=== PATIENT | male | born 1985 | race Caucasian/White ===

== ENCOUNTER → 2024-04-21 14:32 | Outpatient (REF) | payer OTHER, SELFPAY | LOC: HWRAD 14:32 | PROVIDERS: ATTENDING PHYSICIAN Physician Assistant Surgical; FAMILY PHYSICIAN Family Medicine | DX: M17.0 Bilateral primary osteoarthritis of knee (principal); M25.462 Effusion, left knee; M25.461 Effusion, right knee | CPT/HCPCS: 73562 ==

== ENCOUNTER 2024-06-25 09:24 | Emergency (ER) | payer OTHER, SELFPAY ==
[2024-06-25 09:35] VITALS: BP 155/90
--- NOTE | 2024-06-25 10:02 | ED.GENMED ---
History of Present Illness
General
Chief Complaint: Flank Pain
Source: patient
Exam Limitations: none
Time Seen by Provider: 06/25/24 09:56
Nursing documentation reviewed up to this point in time: agreed with
History of Present Illness
History of Present Illness:
38-year-old male with history of HLD, anxiety presents for R flank pain. Patient states right flank pain started 2 days ago and radiated into his right groin. He made an appointment to see his PCP for yesterday but before that visit at 12 PM he
voided and the pain dissipated. His PCP Dr. Morales assume that he passed the stone. At 3:30 AM today pain started up again and worsened to 9/10 on arrival here in the ED but since then pain has improved to 3/10. He denies N/V/D/C. He denies
fever or chills. He denies abdominal pain.
Past History
Past History
ED Past Medical History: Hypercholesterolemia
ED Past Surgical History: None
Social History
Tobacco: Vaping
Alcohol: None
Personal: Single
Living: with family
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
Review of Systems
Review of Systems
Allergies reviewed?: Yes
All Other Systems: ROS reviewed and negative except as documented in HPI and ROS
Constitutional: Denies fever or chills
Cardiac: Denies chest pain
ABD/GI: Denies abdominal pain, nausea, vomiting, diarrhea or constipated
: Reports flank pain (Right); Denies dysuria, frequency, difficulty voiding or urgency
Musculoskeletal: Denies neck pain or back pain
Skin: Reports no symptoms
Neurological: Reports no symptoms
Phy Exam
Physical Exam
Physical Exam:
GENERAL: No acute distress. A&Ox3.
CONSTITUTIONAL: Afebrile.
EYES: clear, conjunctivae normal
ENMT: moist mucus membranes
RESPIRATORY: Regular respirations, nonlabored, lungs clear.
CARDIOVASCULAR: Regular rate and rhythm, no murmurs, no rubs.
GI: Morbidly obese, soft, nontender, normal BS, no flank tenderness to percussion.
MUSCULOSKELETAL: Moves with ease. Well perfused.
SKIN: Warm, dry, pink
PSYCH: Normal mood and affect. Well kept, interactive and appropriate
NEUROLOGIC: Awake, alert and oriented. No focal neurological deficits
Course
Orders/Labs/Results
Orders:
Orders
06/25/24 10:01
CT Abd/pel Without Iv Or Oral Urgent
Comment:
Reason For Exam: R flank pain
06/25/24 10:07
Ketorolac [Toradol] 15 mg IV NOW STA
Ondansetron Injectable [Zofran] 4 mg IV NOW STA
06/25/24 10:08
0.9% Sodium Chloride 1000 ml [Nss] 1,000 ml IV BOLUS
06/25/24 10:20
Complete Blood Count/With Diff Urgent
Comprehensive Metabolic Panel Urgent
Urinalysis Reflex To Culture Urgent
Date Specimen was Collected: 06/25/24
Time Specimen was Collected: 10:01
Urine Microscopic Reflex Cult Urgent
Abnormal Lab Results
06/25/24
10:20
WBC 11.1 H 10^3/uL
(4.8-10.8)
RBC 4.65 L 10^6/uL
(4.70-6.10)
Hct 38.8 L %
(39.0-52.0)
Absolute Neuts (auto) 8.3 H 10^3/uL
(1.4-6.5)
Absolute Monos (auto) 0.8 H 10^3/uL
(0.1-0.6)
Lymphocytes % 15.9 L %
(20.5-51.1)
Glucose 137 H mg/dl
(70-99)
ALT 62 H U/L
(0-50)
Ur Occult Blood Reflex 4+ A
(Negative)
Urine Albumin (Reflex) 1+ A
(Neg - Trace)
06/25/24 10:20
06/25/24 10:20
Vital Signs
Initial and Last Documented VS:
Initial Vital Signs
Temp Pulse Resp BP Pulse Ox
97.8 F 94 18 155/90 97
06/25/24 09:35 06/25/24 09:35 06/25/24 09:35 06/25/24 09:35 06/25/24 09:35
Last Documented Vital Signs
Temp Pulse Resp BP Pulse Ox
97.8 F 82 18 109/80 96
06/25/24 13:43 06/25/24 13:43 06/25/24 13:43 06/25/24 13:43 06/25/24 13:43
MDM/Problems Addressed
Differential Diagnosis Includes:
Kidney stone, ureteral stone, UTI
MDM/Problems Addressed:
38-year-old male with history of HLD, anxiety presents for R flank pain. Patient states right flank pain started 2 days ago and radiated into his right groin. He made an appointment to see his PCP for yesterday but before that visit at 12 PM he
voided and the pain dissipated. His PCP Dr. Morales assume that he passed the stone. At 3:30 AM today pain started up again and worsened to 9/10 on arrival here in the ED but since then pain has improved to 3/10. He denies N/V/D/C. He denies
fever or chills. He denies abdominal pain.
11:00 AM:
CBC unremarkable
CMP normal.
UA: 4+ occult blood otherwise unremarkable
CT abdomen pelvis plain radiology for read:IMPRESSION:
1. Mild right hydronephrosis and hydroureter secondary to a 4.6 mm calculus within the distal right ureter.
2. Hepatic steatosis.
3. Cholelithiasis.
4. Additional findings above.
12:15 PM:
Patient is pain-free, stable for discharge
Rx for a few Vicodin and Flomax sent to his pharmacy, referred to urology for follow-up
*Critical Care Note
Total Time (30-74mins, 75-104mins- exclusive of procedures): Not Applicable
ED Attending Note
-
Portions of this chart may have been created with voice recognition software.� Occasional wrong word or��sound alike� substitutions may have occurred due to the inherent limitations of voice recognition software.
Discharge Plan
Departure
Patient Disposition: Home (Routine Discharge)
Date of Disposition: 06/25/24
Time of Disposition: 12:07
Patient with high blood pressure during this ER visit?: No
Condition: Good
Discharge Problem:
Calculus of distal right ureter
Instructions: Kidney Stones (DC), How to Strain Your Urine, Narcotic Pain Medication
Prescriptions:
New
tamsulosin [Flomax] 0.4 mg capsule
0.4 mg PO DAILY Qty: 5 0RF
hydrocodone-acetaminophen 5-300 mg tablet
1 tab PO Q6H PRN (Reason: Pain) Qty: 6 0RF
Referrals:
Lee Pathak MD [Active] - Call in 1-3 days for appt
Pelon Morales, [Family Provider] -
Activity Restrictions/Additional Instructions:
As we discussed, you have a stone in the lower ureter, it should pass soon if it hasn't passed already.
Strain your urine and put it in container to take to Urologist.
Call Urologist office today and ask when they want to see your for follow up.
I sent prescriptions to your pharmacy for Flomax and Vicodin
Take Ibuprofen 600 mg every 6 hours as needed for mild to moderate pain and use the Vicodin if needed for worse pain.
Return here immediately for fever, chills, vomiting, worsening pain or feeling sicker in any way
Interventions
Interventions:
*Risk Screen - Suicide Last Done: 06/25/24 09:35
*General Assessment Last Done: 06/25/24 09:35
*Neglect/Abuse Screening Last Done: 06/25/24 09:35
*ED- Fall Risk Assessment Last Done: 06/25/24 11:30
*ED COVID-19 Vaccine History Last Done: 06/25/24 09:35
*Nursing Disposition Last Done: 06/25/24 13:43
EX-Fdsisc-Eertobdswg Assessment Last Done: 06/25/24 10:12
ED-Male Genitourinary Assessment Last Done: 06/25/24 10:12
Discharge Date and Time
Discharge Date/Time: 06/25/24 12:30
Print Language: JAPANESE
[2024-06-25 10:12] VITALS: BMI 60.7
[2024-06-25] MEDS: NSS 1000 IV (10:20)
[2024-06-25] MEDS: ZOFRAN 4 MG IV (10:20)
[2024-06-25 10:36] LABS: Urine Albumin 1+ (Neg - Trace); Urine Bilirubin Negative (Negative); Urine Character Clear (Clear); Urine Color Yellow; Urine Glucose Negative (Negative); Urine Ketone Negative (Negative); Urine Leukocyte Negative (Negative); Urine Nitrite Negative (Negative); Urine Occult Blood 4+ (Negative); Urine Specific Gravity 1.015 (<1.030); Urine Urobilinogen Negative (Neg - 1+)
[2024-06-25 10:38] LABS: % Basophils 0.4 % (0-2); % Eosinophils 1.6 % (0-6); % Immature Granulocytes 0.4 % (0-0.5); % Lymphocytes 15.9 % (20.5-51.1); % Monocytes 7.3 % (1.7-9.3); % Neutrophils 74.4 % (42.2-75.2); Absolute Eosinophils 0.2 10^3/uL (0-0.7); Absolute Lymphocytes 1.8 10^3/uL (1.2-3.4); Absolute Monocytes 0.8 10^3/uL (0.1-0.6); Absolute Neutrophils 8.3 10^3/uL (1.4-6.5); Hematocrit 38.8 % (39.0-52.0); Hemoglobin 13.4 g/dL (13.0-18.0); Mean Corp Hgb Conc. 34.5 g/dL (33.0-37.0); Mean Corpuscular Hgb 28.8 pg (27.0-31.0); Mean Corpuscular Volume 83.4 fL (80.0-94.0); Mean Platelet Volume 8.8 fL (7.4-10.4); Nucleated Red Blood Cells % 0 % (-); Platelet Count 245 10^3/uL (130-400); Red Blood Cell Count 4.65 10^6/uL (4.70-6.10); Red Cell Dist. Width 13.2 % (11.5-14.5); White Blood Cell Count 11.1 10^3/uL (4.8-10.8)
[2024-06-25 10:44] LABS: ALT (SGPT) 62 U/L (0-50); AST (SGOT) 43 U/L (17-59); Albumin 4.1 g/dl (3.5-5.0); Alkaline Phosphatase 114 U/L (38-126); Blood Urea Nitrogen 14 mg/dl (9-20); Calcium 8.8 mg/dl (8.4-10.2); Carbon Dioxide 23 mmol/L (22-30); Chloride 106 mmol/L (98-107); Estimated Creatinine Clearance > 125 ml/min; Glucose 137 mg/dl (70-99); Potassium 4.2 mmol/L (3.5-5.1); Sodium 140 mmol/L (135-145); Total Bilirubin 0.9 mg/dl (0.2-1.3); Total Protein 6.5 g/dl (6.3-8.2); eGFR > 60.00
[2024-06-25 10:45] LABS: Urine Squamous Cell >30 /LPF (Few)
[2024-06-25 10:46] LABS: Urine Hyaline Cast 0-2 /LPF (0-2); Urine Mucus Few; Urine Red Blood Cell 0-2 /HPF (0-2)
--- NOTE | 2024-06-25 13:42 | EDRN ---
Reviewed discharge instructions with patient. Verbalized understanding. Ambulated with steady gait to the [facility]
[2024-06-25 13:43] VITALS: BP 109/80
== END 2024-06-25 12:30 | disposition home or self-care (01) ==
LOC: EMR 09:24
PROVIDERS: Registered Nurse; EMERGENCY PHYSICIAN Emergency Medicine; FAMILY PHYSICIAN Family Medicine
DX: N13.2 Hydronephrosis with renal and ureteral calculous obstruction (principal); F41.9 Anxiety disorder, unspecified; E78.00 Pure hypercholesterolemia, unspecified; F17.290 Nicotine dependence, other tobacco product, uncomplicated
CPT/HCPCS: 99284; 96374; 96361; 74176; 80053; 81003; 81015; 85025

== ENCOUNTER 2024-10-03 02:29 | Inpatient (IN) | payer OTHER, SELFPAY ==
[2024-10-02 21:56] VITALS: BP 108/65
--- NOTE | 2024-10-02 22:04 | ED.GENMED ---
History of Present Illness
<Alana Layton MD, Resident - Last Filed: 10/03/24 01:45>
General
Chief Complaint: Skin Problem
Source: patient
Time Seen by Provider: 10/02/24 22:03
History of Present Illness
History of Present Illness:
38-year-old male with a past medical history of hyperlipidemia and anxiety comes to the emergency department due to feeling exhausted all week and developing left lower extremity swelling, redness, and pain earlier today. He says the pain also
radiates down from the left side of his groin to his left lower extremity as well. The symptoms developed today when he was at [place] [place] was told by one of his family members that his left leg was more swollen than the other. Throughout the
week he has been feeling exhausted, has had hot and cold flashes and an on and off cough. Does not have any chest pain has had anxiety and headaches more so in the past few hours following searching his symptoms online. He took some ibuprofen
earlier today, but he still has had hot and cold flashes and has been sweating profusely. He states that he had a cortisone shot for his left knee on Friday, he states that he never has any issues following injections. He does not have any chest
pain, but has some mild shortness of breath. He states that he had an insect bite last week on his left arm, but not sure if it was a tick or spider bite.
Past History
<Alana Layton MD, Resident - Last Filed: 10/03/24 01:45>
Past History
ED Past Medical History: Hypercholesterolemia, Psychiatric (Anxiety) and Other (Insomnia)
ED Past Surgical History: None
Social History
Tobacco: Vaping
Alcohol: Occasional (Once a month)
Drug: None
Personal: Single
Living: with family
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
Review of Systems
<Alana Layton MD, Resident - Last Filed: 10/03/24 01:45>
Review of Systems
Allergies reviewed?: Yes
Constitutional: Reports fatigue, night sweats and chills
EENT: Reports no symptoms
Respiratory: Reports cough
Cardiac: Reports no symptoms
ABD/GI: Reports nausea; Denies abdominal pain or vomiting
: Reports no symptoms
Skin: Reports other (Left lower extremity rash)
Neurological: Reports headache; Denies weakness or numbness
Endocrine: Reports no symptoms
Hematologic/Lymphatic: Reports no symptoms
Psychiatric: Reports no symptoms
Phy Exam
<Alana Layton MD, Resident - Last Filed: 10/03/24 01:45>
General Physical Exam
General Presentation: moderate distress
General Skin: warm and dry
General Habitus: obese
General Mental: anxious
General Hydration: appears well hydrated
Cardiovascular Exam
Cardiovascular Exam: no murmur and tachycardia
Pulmonary Exam
Pulmonary Exam: no respiratory distress, no rales, no crackles, no rhonchi, no wheezing and no cough
Gastrointestinal Exam
Gastrointestinal Exam: normal bowel sounds, non tender, soft and non distended
Musculoskeletal Exam
Musculoskeletal Exam: edema (Left lower extremity edema)
Skin Exam
Skin Exam: erythema (Left lower extremity large area of erythema left parson)
Scores
<Alana Layton MD, Resident - Last Filed: 10/03/24 01:45>
PE Wells Score
Symptoms of DVT: Yes
No alternative diagnosis better explains the illness: No
Tachycardia with pulse > 100: Yes
Immobilization (>=3 days) or surgery within previous 4 weeks: No
Prior history of DVT or pulmonary embolism: No
Presence of hemoptysis: No
Presence of malignancy: No
Pulmonary Embolism Risk Score: 1.5
Probability of PE: Pt is low risk
<Thao Ruiz, DO - Last Filed: 10/03/24 01:40>
PE Wells Score
Pulmonary Embolism Risk Score: 1.5
Probability of PE: Pt is low risk
Sepsis
<Alana Layton MD, Resident - Last Filed: 10/03/24 01:45>
Sepsis Screening
Sepsis Assessment: Sepsis
Sepsis Screen
Sepsis Screen: Sepsis
Date: 10/03/24
Time: 01:44
<Thao Ruiz, DO - Last Filed: 10/03/24 01:40>
Sepsis Screen
Sepsis Screen: Sepsis
Date: 10/03/24
Time: 01:39
Course
<Alana Layton MD, Resident - Last Filed: 10/03/24 01:45>
Orders/Labs/Results
Orders:
Orders
10/02/24 22:24
Lactic Acid Urgent
0.9% Sodium Chloride 500 ml [Nss] 500 ml IV BOLUS
Legs, left US [US Periph Venous LOWER Ext LT] Urgent
Comment:
Reason For Exam: Left lower extremity pain
10/02/24 22:25
Complete Blood Count/With Diff Urgent
Comprehensive Metabolic Panel Urgent
10/02/24 22:28
IV Insert/Care/Rem.- Treatment PRN
10/02/24 22:30
Blood Culture Q30M
CONOR Source: Blood/Venous
Specimen Description:
10/02/24 22:34
Lyme Progressive Urgent
10/02/24 22:49
Lorazepam [Ativan] 1 mg PO NOW STA
10/02/24 23:00
Blood Culture Q30M
CONOR Source: Blood/Venous
Specimen Description:
10/02/24 23:42
COVID-19 Antigen Urgent
Source: Nasal Swab
Influenza A+B Rapid Molecular Urgent
CONOR Source: Nasal Swab
Specimen Description:
10/03/24 00:00
CR Chest - 2 Views Urgent
Reason For Exam: Cough
10/03/24 00:12
Manual Differential Urgent
10/03/24 01:34
Vancomycin [Vancocin] 2,000 mg 0.9% Sodium Chloride 500 ml [Nss] 500 ml IV NOW
10/03/24 01:39
Ketorolac [Toradol] 30 mg IV NOW STA
Abnormal Lab Results
10/03/24 10/03/24
00:11 00:12
WBC 35.0 H 10^3/uL
(4.8-10.8)
RBC 4.66 L 10^6/uL
(4.70-6.10)
Abs Neuts (Manual) 31.5 H 10^3/uL
(1.4-6.5)
Segmented Neutrophils 77 H %
(42-75)
Band Neutrophils 13 H %
(0-3)
Lymphocytes (Manual) 7 L %
(20-51)
Sodium 134 L mmol/L
(135-145)
BUN 26 H mg/dl
(9-20)
Creatinine 1.4 H mg/dL
(0.7-1.3)
Glucose 215 H mg/dl
(70-99)
Total Bilirubin 1.6 H mg/dl
(0.2-1.3)
ALT 83 H U/L
(0-50)
10/03/24 00:12
10/03/24 00:11
Vital Signs
Initial and Last Documented VS:
Initial Vital Signs
Temp Pulse Resp BP Pulse Ox
99.7 F 122 22 108/65 96
10/02/24 21:56 10/02/24 21:56 10/02/24 21:56 10/02/24 21:56 10/02/24 21:56
Last Documented Vital Signs
Temp Pulse Resp BP Pulse Ox
99.7 F 122 21 108/65 99
10/02/24 21:56 10/03/24 00:00 10/03/24 00:00 10/02/24 21:56 10/02/24 23:15
<Thao Ruiz DO - Last Filed: 10/03/24 01:40>
Orders/Labs/Results
Orders:
Orders
10/02/24 22:24
Lactic Acid Urgent
0.9% Sodium Chloride 500 ml [Nss] 500 ml IV BOLUS
Legs, left US [US Periph Venous LOWER Ext LT] Urgent
Comment:
Reason For Exam: Left lower extremity pain
10/02/24 22:25
Complete Blood Count/With Diff Urgent
Comprehensive Metabolic Panel Urgent
10/02/24 22:28
IV Insert/Care/Rem.- Treatment PRN
10/02/24 22:30
Blood Culture Q30M
CONOR Source: Blood/Venous
Specimen Description:
10/02/24 22:34
Lyme Progressive Urgent
10/02/24 22:49
Lorazepam [Ativan] 1 mg PO NOW STA
10/02/24 23:00
Blood Culture Q30M
CONOR Source: Blood/Venous
Specimen Description:
10/02/24 23:42
COVID-19 Antigen Urgent
Source: Nasal Swab
Influenza A+B Rapid Molecular Urgent
CONOR Source: Nasal Swab
Specimen Description:
10/03/24 00:00
CR Chest - 2 Views Urgent
Reason For Exam: Cough
10/03/24 00:12
Manual Differential Urgent
10/03/24 01:34
Vancomycin [Vancocin] 2,000 mg 0.9% Sodium Chloride 500 ml [Nss] 500 ml IV NOW
10/03/24 01:39
Ketorolac [Toradol] 30 mg IV NOW STA
Abnormal Lab Results
10/03/24 10/03/24
00:11 00:12
WBC 35.0 H 10^3/uL
(4.8-10.8)
RBC 4.66 L 10^6/uL
(4.70-6.10)
Abs Neuts (Manual) 31.5 H 10^3/uL
(1.4-6.5)
Segmented Neutrophils 77 H %
(42-75)
Band Neutrophils 13 H %
(0-3)
Lymphocytes (Manual) 7 L %
(20-51)
Sodium 134 L mmol/L
(135-145)
BUN 26 H mg/dl
(9-20)
Creatinine 1.4 H mg/dL
(0.7-1.3)
Glucose 215 H mg/dl
(70-99)
Total Bilirubin 1.6 H mg/dl
(0.2-1.3)
ALT 83 H U/L
(0-50)
10/03/24 00:12
10/03/24 00:11
Vital Signs
Initial and Last Documented VS:
Initial Vital Signs
Temp Pulse Resp BP Pulse Ox
99.7 F 122 22 108/65 96
10/02/24 21:56 10/02/24 21:56 10/02/24 21:56 10/02/24 21:56 10/02/24 21:56
Last Documented Vital Signs
Temp Pulse Resp BP Pulse Ox
99.7 F 122 21 108/65 99
10/02/24 21:56 10/03/24 00:00 10/03/24 00:00 10/02/24 21:56 10/02/24 23:15
<Alana Layton MD, Resident - Last Filed: 10/03/24 01:45>
MDM/Problems Addressed
Differential Diagnosis Includes:
DVT, Lyme disease, Pneumonia, COVID, Flu, Pulmonary Embolism, Cellulitis
MDM/Problems Addressed:
38-year-old male comes in very anxious and distressed with lower extremity edema, erythema and tenderness. Has had chills and hot flashes with sweating profusely today.
Will get CBC, CMP
Due to possible sepsis as febrile, tachycardic, and tachypneic, will draw blood cultures, lactic acid and start IV fluids
Check Lyme serology (Had insect bite last week), flu and COVID
Check chest x-ray due to recent cough, may be pneumonia/other acute cardiopulmonary process
Will check left lower extremity ultrasound for possible DVT
Negative COVID and Flu
Marked leukocytosis noted on CBC, possibly related to corticosteroid injection this past week
Lactic acid top end of normal (2.0)
CXR unremarkable on initial read
No evidence of DVT seen on ultrasound
Will start empiric antibiotic therapy with Vancomycin
Will admit to hospital for further management
<Alana Layton MD, Resident - Last Filed: 10/03/24 01:45>
*Pulse Oximetry
SaO2: 96
Oxygen Mode of Delivery: Room air
Patient hypoxic: no
*[employer] Interpretation
Rate: tachycardiac
Interpretation: normal
Heart Rate: 122
Rhythm: sinus
*Critical Care Note
Total Time (30-74mins, 75-104mins- exclusive of procedures): Not Applicable
ED Attending Note
<Alana Layton MD, Resident - Last Filed: 10/03/24 01:45>
-
Portions of this chart may have been created with voice recognition software.� Occasional wrong word or��sound alike� substitutions may have occurred due to the inherent limitations of voice recognition software.
<Thao Ruiz DO - Last Filed: 10/03/24 01:40>
ED Attending Note
Patient seen and examined by attending physician: Yes
I performed the substantive portion of visit, reviewed & personally made and approve the management plan that is documented in note by myself or SHAYY.: Yes
I performed a history and physical exam of patient and discussed management with resident, I reviewed resident's note and agree with documented findings and plan of care.: Yes
ED Attending Note:
38-year-old male with history of hyperlipidemia and anxiety presenting to the emergency department for left lower extremity pain and redness. Reports on Friday, 1 week ago he was bit by a bug in his left forearm. The following day he started to
feel generally unwell. Notes cough, fatigue. Also has been having fevers and chills with nausea, no vomiting. Today noticed some swelling and redness to the left lower extremity distally, as well as pain in the medial thigh. Denies injury or
trauma. Denies any travel. Patient took ibuprofen several hours prior to arrival. Denies any history of blood clots. Denies chest pain or difficulty breathing. Denies numbness or tingling to the extremity. Vital signs are significant for
low-grade temperature and tachycardia.
On exam patient is in no acute distress, nontoxic. Benign cardiac and pulmonary exam. Lungs clear to auscultation. On examination of the upper extremities, small area of bite to the left medial forearm. No signs of bull's-eye or erythema
migrans. On examination of the left lower extremity, erythema and warmth to the left parson with distal pulses and sensation intact to the foot. No significant swelling. Normal exam without any wounds or concern for Meron's. Concern for
cellulitis versus DVT. Lyme disease is also consideration given systemic symptoms. Plan for laboratory analysis, Lyme test, DVT ultrasound
01:30 -delay in disposition secondary to difficult IV access. Right ultrasound-guided IV placed by ut. Labs show elevated white blood cell count of 35,000. Lactic acid is within normal limits, 2.0. However, patient remains tachycardic with
low-grade temperature, meeting criteria for SIRS and possible sepsis. Blood culture sent. DVT ultrasound is negative. Patient does note that he had steroid injection to the left knee on Friday, which could be contributing to leukocytosis,
however ultimately continue to suspect systemic infection. Will start patient on vancomycin and plan for admission
Discharge Plan
Departure
Patient Disposition: Admit
Date of Disposition: 10/03/24
Time of Disposition: 01:41
Admit to: Med/Surg
Presentation/result/management discussed w/ accepting MD/DO: Hospitalist
Patient with high blood pressure during this ER visit?: No
Condition: Fair
Discharge Problem:
Left leg cellulitis
Referrals:
Pelon Morales DO [Family Provider, [facility]]
Interventions
Interventions:
*Risk Screen - Suicide Last Done: 10/02/24 21:56
*General Assessment Last Done: 10/02/24 21:56
*Neglect/Abuse Screening Last Done: 10/02/24 21:56
*ED- Fall Risk Assessment Last Done: 10/02/24 21:56
*ED COVID-19 Vaccine History Last Done: 10/02/24 21:56
ED-Skin Assessment Last Done: 10/02/24 22:31
Discharge Date and Time
Print Language: GREENLAND[place]
[2024-10-02] MEDS: ATIVAN 1 MG PO (23:16)
[2024-10-02] MEDS: NSS 500 IV (23:24)
[2024-10-03] VITALS (8 sets, daily range): BP systolic 90–123; BP diastolic 41–70; BMI 57.6; BMI 56.7
[2024-10-03 00:01] LABS: COVID-19 Antigen Negative (Negative)
[2024-10-03 00:52] LABS: ALT (SGPT) 83 U/L (0-50); AST (SGOT) 28 U/L (17-59); Albumin 3.9 g/dl (3.5-5.0); Alkaline Phosphatase 116 U/L (38-126); Blood Urea Nitrogen 26 mg/dl (9-20); Calcium 8.9 mg/dl (8.4-10.2); Carbon Dioxide 24 mmol/L (22-30); Chloride 102 mmol/L (98-107); Glucose 215 mg/dl (70-99); Potassium 4.9 mmol/L (3.5-5.1); Sodium 134 mmol/L (135-145); Total Protein 6.4 g/dl (6.3-8.2); eGFR > 60.00
[2024-10-03 00:53] LABS: Hematocrit 40.4 % (39.0-52.0); Hemoglobin 13.9 g/dL (13.0-18.0); Mean Corp Hgb Conc. 34.4 g/dL (33.0-37.0); Mean Corpuscular Volume 86.7 fL (80.0-94.0); Platelet Count 379 10^3/uL (130-400); Red Cell Dist. Width 13.0 % (11.5-14.5)
[2024-10-03 01:26] LABS: Absolute Neutrophils -Man Diff 31.5 10^3/uL (1.4-6.5); Normal RBC Morphology Yes; Platelets Checked Yes; Total Cells Counted 100; Toxic Granulation 1+
[2024-10-03] MEDS: TORADOL 30 MG IV (01:44)
--- NOTE | 2024-10-03 02:00 | HPS.HSE ---
Family Physician
-
Family Physician: Pelon Morales
Chief Complaint
-
Left lower extremity swelling redness
History of Present Illness
This is a 38-year-old male with past medical history significant for anxiety, hyperlipidemia, obesity, DAWN not on CPAP who presents to the emergency department with swelling and redness in the left lower extremity.
Patient reported that he has been feeling unwell for about 1 week. He reports intermittent chills but no measured fevers at home. He reports night sweats. He reports that his been fatigued lately. He denies shortness of breath. He denies any
chest pain. He denies any dyspnea exertion. Today he saw that his leg was red and swollen. He also reported some groin tenderness on the left groin. Patient reported that about 2 weeks ago he had gone camping and did suffer a scratch wound to
his left lower extremity. He also reported having an insect bite in his left upper extremity but it was not a tick.
He reported that about 5 months ago he had a kidney stone which was treated medically. He has no recent antibiotic use and no known sick contacts.
In the emergency department he had a temp of 99.7, he was satting 99%. His blood pressure was 108/65 with a pulse rate of 120. He had leukocytosis to 35,000 with 13% bands. Hemoglobin was 13.9 with a platelet count of 379. Electrolytes were
normal. BUN and creatinine were unchanged from prior with a glucose of 215.
Peripheral ultrasound of the left lower extremity was negative for DVT. His chest x-ray was clear
Medical History
Past Medical History
Past Medical History: Reports Hypercholesterolemia, Psychiatric (Anxiety) and Other (DAWN not on CPAP, morbid obesity)
Past Surgical History: Reports Other (Nasal septoplasty)
Social History
Tobacco: Vaping
Alcohol: Occasional
Drug: None
Personal:
Living: With Family
Employment: Employed
Family History
Family History: Not pertinent
Allergies / Home Medications
Allergies reflects when Allergies were last updated in [facility].
Home Medications with original date entered in [facility]
Allergy/Medication List:
Allergies
Allergy/AdvReac Type Severity Reaction Status Date / Time
cement dust Allergy Unknown Uncoded 10/02/24 21:55
Atorvastatin 10 mg tablet, 10 mg p.o. every afternoon
Zolpidem 10 mg tablets, 10 mg p.o. at bedtime
Klonopin 2 mg tablets, 2 mg p.o. 3 times daily as needed anxiety
Review of Systems
-
Constitutional: Reports Fatigue and Chills
EENT: Reports No Symptoms
Respiratory: Reports No Symptoms
Cardiac: Reports No Symptoms
Abdomen/GI: Reports No Symptoms
: Reports No Symptoms
Musculoskeletal: Reports Edema
Skin: Reports Rash
Neurological: Reports No Symptoms
Endocrine: Reports No Symptoms
Hematologic/Lymphatic: Reports No Symptoms
Psych: Reports No Symptoms
Physical Exam
Vital Signs
Vital Signs
Temp Pulse Resp BP Pulse Ox
99.9 F 128 34 108/56 97
10/03/24 01:47 10/03/24 01:45 10/03/24 01:45 10/03/24 01:29 10/03/24 01:45
Physical Exam
General: Well Developed, Well Nourished, No Apparent Distress, Chills and Obese
HEENT: NormoCephalic, Anicteric, Moist mucous membranes, Atraumatic and PERRLA
Respiratory: Clear
Cardiac: S1/S2 and Tachycardia
Breast: Deferred by me
GI: Soft, Non Tender, Non Distended and Normal Bowel Sounds
Rectal: Deferred by Provider
Genito-urinary: Deferred by me
Musculoskeletal: No Clubbing, No Cyanosis and Edema, Left Lower Extremity (trace)
Skin: Warm, Dry and Rash (erythematous papules on erythamatous plaque with edema in the left lower extremity)
Neuro: AO x 3, Nonfocal/grossly intact and Cranial Nerves Intact
Hematologic/Lymphatic: No Lymphadenopathy
Psych: Calm
Laboratory Results
-
10/03/24 00:12
10/03/24 00:11
Laboratory Results
Lactic Acid 2.0 mmol/L (0.7-2.0) 10/03/24 00:15
Total Bilirubin 1.6 mg/dl (0.2-1.3) H 10/03/24 00:11
AST 28 U/L (17-59) 10/03/24 00:11
ALT 83 U/L (0-50) H 10/03/24 00:11
Alkaline Phosphatase 116 U/L (38-126) 10/03/24 00:11
Data Reviewed
-
Diagnostic Radiology: Image Personally Visualized and interpreted
Ultrasound: Report Reviewed by me
Lab Data: Labs Reviewed by me
Impression/Plan
-
IMPRESSION:
38-year-old with recurrent cellulitis of the left lower extremity who has been feeling sick for about 1 week and noted chills and sweats today as well as swelling and redness of his left lower extremity. He has some groin discomfort. Examination
revealed no lymphadenopathy. Examination is consistent with left lower extremity cellulitis. He has no evidence of DVT on the peripheral ultrasound. ED he is tachycardic, has a low-grade temp of 99's, he has leukocytosis 35 with bandemia. This
picture is consistent with cellulitis with sepsis. No evidence of deep tissue infection or fasciitis. Lactic acid was 2.0
PLAN:
Cellulitis - Severe celllulitis with sepsis.
- admit to med/surg
- blood cultures sent
- mrsa swab
- IV vancomycin for now
- tachcyardia likely secondary to cellulitis, will check d-dimer as well
- continue IV fluids overnight
- supplemental O2 HS for DAWN
- lyme titers sent
DVT PPX - lovenox sq
Code status - Full Code
[2024-10-03] MEDS: VANCOCIN 540 MG IV (02:01)
[2024-10-03] MEDS: NSS 1500 IV (02:38)
[2024-10-03 02:47] LABS: D-Dimer 0.35 ug/mlFEU (0.00-0.50)
--- NOTE | 2024-10-03 04:00 | PTCARENOTE ---
Patient arrived to [facility] [address] from ED via stretcher, ambulated to bed. C/o pain to left leg 09/09, headache 7-10/10, and right groin 05/10. C/o right wrist IV pain - IV removed per patient request. Redness to left groin and left leg/parson -- marked with
skin marker on admission. Patient c/o chills and shakes on arrival, temp stable. Warm blankets provided. at bedside. Call dee in reach. Will continue to monitor.
[2024-10-03] MEDS: NSS 1000 IV ×2 (05:05→23:38)
[2024-10-03 07:45] LABS: Hematocrit 36.0 % (39.0-52.0); Hemoglobin 12.3 g/dL (13.0-18.0); Mean Corp Hgb Conc. 34.2 g/dL (33.0-37.0); Mean Corpuscular Volume 86.5 fL (80.0-94.0); Platelet Count 299 10^3/uL (130-400); Red Cell Dist. Width 13.1 % (11.5-14.5)
[2024-10-03 07:56] LABS: Blood Urea Nitrogen 21 mg/dl (9-20); Calcium 8.0 mg/dl (8.4-10.2); Carbon Dioxide 26 mmol/L (22-30); Chloride 105 mmol/L (98-107); Estimated Creatinine Clearance > 125 ml/min; Glucose 153 mg/dl (70-99); Magnesium 1.6 mg/dl (1.6-2.3); Potassium 4.2 mmol/L (3.5-5.1); Sodium 136 mmol/L (135-145); eGFR > 60.00
--- NOTE | 2024-10-03 08:00 | W.PN.HOSP.TC ---
Addendum entered and electronically signed by Albert Hudson MD 10/03/24 13:53:
GPC bacteremia
-Repeat cultures
-2d echo
-DC Ctx
-Continue Vanc
-Follow up on sensitivities and speciation
Addendum entered and electronically signed by Albert Hudson MD 10/03/24 13:51:
Sepsis secondary to LLE cellulitis
-Bcx x2
-IVAtb with Vanc and Ctx
-Vanc trough prior to 4th dose
-Vanc dosing per pharmacy
HLD
-Continue statin
Obesity
-Dietary/Exercise
-Oupaitent bariatric follow up
-GLP-1 consideration with PCP
Hyponatremia resovled
Sharad
-Not on CPAP
Original Note:
Today's Communication/Plan
-
See A/P
Assessment / Plan
Assessment / Plan
Assessment/plan
#Sepsis secondary to left lower extremity cellulitis
-Ultrasound with no evidence of DVT
-Blood cultures obtained in the ED, MRSA swab, pending
-Initiated on IV vancomycin, add ceftriaxone for broader coverage, await MRSA screen
-Ketorolac for pain
-Edilberto skin borders to monitor for progression
-Lanre wrap, elevate leg
-Lyme titers pending given exposure to insects
#Anxiety
-Continue home clonazepam, zolpidem.
-Reviewed PDMP. No red flags next
#Hypercholesterolemia
-Continue atorvastatin
#SHARAD not on CPAP
#Morbid obesity BMI 56.7
-Affects all aspects of care
-Uses Ozempic at home
CODE STATUS full code
DVT prophylaxis Lovenox
Anticipated Discharge: > 48 hours
Subjective/Interval History
-
Patient seen and examined at bedside. Reports chills this morning. Administered Tylenol. Otherwise in no distress
Objective Data
-
Labs:
Laboratory Results
10/03/24 10/03/24 10/03/24
00:11 00:12 07:14
WBC 35.0 H 21.6 H
Hgb 13.9 12.3 L
Hct 40.4 36.0 L
Plt Count 379 299 D
Sodium 134 L 136
Potassium 4.9 4.2
Chloride 102 105
Carbon Dioxide 24 26
BUN 26 H 21 H
Creatinine 1.4 H 1.1
Glucose 215 H 153 H
Calcium 8.9 8.0 L
Total Bilirubin 1.6 H
AST 28
ALT 83 H
Alkaline Phosphatase 116
Vital Signs:
Vital Signs
Temp Pulse Resp BP Pulse Ox
101.1 F H 126 24 108/59 90
10/03/24 07:40 10/03/24 07:40 10/03/24 07:40 10/03/24 07:40 10/03/24 07:40
I&O
10/02/24 10/03/24 10/04/24
06:59 06:59 06:59
Intake Total 2540 / 2540
Balance 2540 / 2540
Review of Systems
-
All other systems: Reviewed and negative (Except as documented)
Physical Exam
-
General: Well Developed, No Apparent Distress and Obese
HEENT: Normocephalic, Atraumatic and Moist Mucous Membranes
Respiratory: Clear to Auscultation
Cardiac: Regular Rhythm and S1/S2; Negative Murmur, Rub or Gallop
GI: Soft, Nontender, Nondistended and Normal Bowel Sounds
Musculoskeletal: No Clubbing, No Cyanosis and No Edema
Skin: Other (erythematous papules on erythamatous plaque with edema in the left lower extremity)
Neuro: Nonfocal/Grossly Intact
[2024-10-03] MEDS: TYLENOL 650 MG PO ×2 (08:01→15:01)
--- NOTE | 2024-10-03 10:22 | PHA.VAN.IN ---
Assessment
- Assessment
Renal Function: SCR Appears Elevated from baseline
Maximum Temperature: 101.1
Minimum Temperature: 98.8
Plan
- Plan
Initial / Loading Dose: 2000mg on 10/03
Maintenance Regimen: Dose by level.
Monitoring: Random level with morning labs on 10/04
But SrCr seems to be improving. Will give another 1250mg at 1800 on 10/03
Pharmacokinetics Vancomycin I
- -
Patient Age: 38
Patient Sex: Male
Vancomycin Day #: 1
Indication: Skin And Soft Tissue
Requesting Provider: Dr. Briseno, Laura Ochoa
Pertinent Antimicrobial Allergies:
none
Height / Weight:
Height 6 ft 1 in
Actual Weight 194.846 kg
Pertinent Past Medical History: Obesity
- Vital Signs / Lab Results
Temp Pulse Resp BP Pulse Ox
99.0 F 126 24 108/59 90
10/03/24 09:30 10/03/24 07:40 10/03/24 07:40 10/03/24 07:40 10/03/24 07:40
Lab Results - Hematology
10/03/24 10/03/24
00:12 07:14
WBC 35.0 H 21.6 H
Band Neutrophils 13 H
Lab Results - Chemistry
10/03/24 10/03/24
00:11 07:14
BUN 26 H 21 H
Creatinine 1.4 H 1.1
Estimated Creat Clear > 125
Albumin 3.9
10/03/24
00:15
Lactic Acid 2.0
Microbiology Results
10/02/24 23:42 Influenza Types A & B ([facility]) - Final
Nasal Swab Negative for Influenza A & B, NAAT
Negative results must be combined with clinical observations
and patient history.
Nucleic Acid Amplification test (NAAT)performed on the
[employer] platform.
[2024-10-03 10:59] LABS: Glycohemoglobin (HgbA1c) 5.6 % (4.0-5.6)
[2024-10-03] MEDS: STERILE WATER FOR INJECTION 10 ML IV (12:50)
[2024-10-03] MEDS: ROCEPHIN 1000 MG IV (12:50)
[2024-10-03] MEDS: TORADOL 15 MG IV ×2 (14:08→23:50)
[2024-10-03] MEDS: LIPITOR 10 MG PO (17:16)
[2024-10-03] MEDS: VANCOCIN 275 MG IV (17:16)
[2024-10-03] MEDS: ULTRAM 25 MG PO (20:18)
[2024-10-03] MEDS: LOVENOX 60 MG SC (20:19)
[2024-10-03] MEDS: KLONOPIN 2 MG PO (21:30)
[2024-10-03] MEDS: TYLENOL 1000 MG PO (21:30)
[2024-10-03] MEDS: AMBIEN 10 MG PO (21:30)
--- NOTE | 2024-10-03 23:15 | PTCARENOTE ---
Spoke with PCT. BP 96/44, HR 116, Temp 100.3F. I took manual BP and noted 90/54. Michael GREENWOOD notified. New orders received for IVF bolus 500cc and to start IVF at 100cc/hr. Started. Toradol 15mg IV also ordered. Given. Patient denies dizziness.
--- NOTE | 2024-10-03 23:22 | W.PN.UPDATE ---
Update Note
Progress Note Update
-Patient is hypotensive with bp 90/54, hr in 100s, temp 100.3, RR 22. Asymptomatic, will give one time bolus of 500cc NSS and start maintenance IVF of NSS 100cc/hr.
-Will change to telemetry.
[2024-10-03] MEDS: NSS 500 IV (23:39)
--- NOTE | 2024-10-04 02:10 | PTCARENOTE ---
Right AC IV site difficult to put IVF through, distal occlusion since patient bending arm with sleep. VAT notified need for new IV site. New IV right hand #22 inserted, IVF to new site. Afebrile at 97.7F. BP improved 99/54, patient denies dizziness.
Patient diaphoretic, fever broke. Partial self cares, changed shorts and bed linens changed.
[2024-10-04 03:00] VITALS: BP 114/68
[2024-10-04 04:30] VITALS: BMI 56.0
[2024-10-04] MEDS: TYLENOL 1000 MG PO ×3 (06:06→22:12)
[2024-10-04 07:00] VITALS: BP 126/70
--- NOTE | 2024-10-04 07:05 | W.PN.HOSP.TC ---
Addendum entered and electronically signed by Porfirio Last MD 10/04/24 23:47:
Attending Addendum-
I saw and evaluated the patient. I reviewed the resident�s note and agree with findings and plan as documented in the resident�s note. Sub: seen with father and present. O/N was hypotensive and given IVF. Currently doesnt feel well. Compalisn
if pain in LLE. Last fever 10/03. Deneis abd pain NV. States his infection is getting worse. Full 12 point ROS reviewed and negative except as documented Exam: Vitals reviewed in chart GEN-mild distress heart RRR no MRG lungs clear abd obese NT ND LE
redness warmth with clear large fluid filled blister on LLE pulses intact TTP redness extending into groin! pulses intact.
Plan:
# Sepsis secondary to severe LLE cellulitis and bacteremia
- worsening, leukocytosis increased
- ID consult appreciated
- DC vanco start ceftriaxone per ID
- if worsening may benefit from addition of clinda and surgery c/s
- 2/2 blood cx pos for GAS! sensi pend
- repeat blood cx
- c/s wound care
-ctm very closely for nec fasc
# Anxiety- cont Klonopin prn
# insomina- cont zolpidem
# HLD - cont atorva
# Morbid obesity- activities counselor, cont ozempic
-CODE-Full
-Dispo- eventual DC home with HC
Time spent coordinating care, review of plan of care with resident, personally reviewed records in EMR, med rec, consults, notes, labs, radiology, d/w nursing and POA � 52 mins
Original Note:
Today's Communication/Plan
-
- IV ceftriaxone (d/c vancomycin per ID)
- closely monitor cellulitis progression
- wound care consult
Assessment / Plan
Assessment / Plan
Assessment/plan
#Sepsis secondary to left lower extremity cellulitis
-Blood cultures grew Group A Strep.
-d/c vancomycin, started IV ceftriaxone (day 1 10/04/2024)
- Increased tramadol from 25 to 50mg prn for pain; ketorolac prn
-Edilberto skin borders to monitor for progression
- progression noted today, 10/04, but no crepitus or necrotic appearing wounds on my exam
-leave lower extremity unwrapped; tense blister present on LLE
-Lyme titers pending given exposure to insects
- f/u ID recs
- wound care consult ordered
#Anxiety
-Continue home clonazepam, zolpidem.
-Reviewed PDMP. No red flags
#Hypercholesterolemia
-Continue atorvastatin
#DAWN not on CPAP
#Morbid obesity BMI 56.7
-Affects all aspects of care
-Uses Ozempic at home
CODE STATUS full code
DVT prophylaxis Lovenox
Anticipated Discharge: > 48 hours
Subjective/Interval History
-
Date of Service: October 04, 2024
38 yo M PMH HLD, obsesity, anxiety, DAWN not on CPAP p/w swelling and redness of LLE most concerning for cellulitis. Initial VS tachcycardia, tachypnea, and n/f leukocytosis to 35. Admitted, started on IV vancomycin. Blood cultures grew Group A
Strep, sensitivities pending. US negative for DVT.
Overnight, BP dropped to 90/50s, HR in 100s, temp 100.3, RR 22. Was given 500 ccs NS.
This morning, he is overall doing well. But, nurse notes extension of cellulitis boundary into the thigh/groin.
Objective Data
-
Labs:
Laboratory Results
10/04/24
06:00
WBC Pending
Hgb Pending
Hct Pending
Plt Count Pending
Sodium Pending
Potassium Pending
Chloride Pending
Carbon Dioxide Pending
BUN Pending
Creatinine Pending
Glucose Pending
Calcium Pending
WBC 25
Hgb 12.1
Plt 246
electrolyes within normal limits
Random vancomycin < 5 ug/mL
Vital Signs:
Vital Signs
Temp Pulse Resp BP Pulse Ox
98.3 F 105 20 114/68 99
10/04/24 03:00 10/04/24 03:00 10/04/24 03:00 10/04/24 03:00 10/04/24 03:00
I&O
10/03/24 10/04/24 10/05/24
06:59 06:59 06:59
Intake Total 2540 / 2540 4015 / 4015
Balance 2540 / 2540 4015 / 4015
Review of Systems
-
History Source: Patient
Constitutional: Reports No Symptoms
Respiratory: Reports No Symptoms
Cardiac: Reports No Symptoms
Abdomen/GI: Reports No Symptoms
Genitourinary: Reports No Symptoms
Skin: Reports Other (pain in left lower extremity)
Neuro: Reports No Symptoms
Physical Exam
-
General: No Apparent Distress
HEENT: Normocephalic and Atraumatic
Respiratory: Clear to Auscultation
Cardiac: Regular Rhythm and S1/S2
GI: Soft, Nontender and Normal Bowel Sounds
Skin: Other (left lower extremity: erythema, tenderness to palpation, and warmth. no crepitus on my exam. tense blister on left lower extremity)
Neuro: Awake and Alert
Psych: Calm
--- NOTE | 2024-10-04 07:33 | PTCARENOTE ---
Report given verbally to oncoming shift, Katerin NIELSEN. Bedside report completed. Questions answered.
[2024-10-04 08:05] LABS: Hematocrit 35.4 % (39.0-52.0); Hemoglobin 12.1 g/dL (13.0-18.0); Mean Corp Hgb Conc. 34.2 g/dL (33.0-37.0); Mean Corpuscular Volume 87.0 fL (80.0-94.0); Platelet Count 246 10^3/uL (130-400); Red Cell Dist. Width 13.2 % (11.5-14.5)
[2024-10-04] MEDS: LOVENOX 60 MG SC ×2 (08:22→20:54)
[2024-10-04 08:32] LABS: Nucleated Red Blood Cells % 0 % (-)
--- NOTE | 2024-10-04 08:45 | CARDSERVLU ---
Echocardiogram with Lumason completed after protocol screening completed. Allergies verified.
Patent IV site: _R AC____
IV site flushed with 0.9% NaCl pre and post administration.
Diluted bolus method utilized to enhance visualization of ventricular whitfield.
Total volume given: __1.5__ mL
Patient tolerated all procedures well without complications.
--- NOTE | 2024-10-04 08:51 | PHA.VAN.FU ---
Addendum entered and electronically signed by Tammy Diana [facility] 10/04/24 11:55:
Agree with assessment and plan below
Original Note:
Vancomycin Assessment / Plan
- Assessment
Renal Function: SCR Decreasing
WBC's are: Trending Up
In the past 24 hrs, patient has been: Afebrile
- Assessment - Therapeutic Drug Monitoring
Random Level: <5.0 - drawn ~14.5H after dose of 1250mg
- Dosing Plan
Adjust Regimen to: 1250mg q8h
New Regimen Predicts: AUC (488), Peak (28.1), Trough (13.1)
- Monitoring Plan
No level(s) ordered at this time: will consider within next few days
- Follow Up
Pharmacy will continue to follow.
Vancomycin Follow UP
- -
Patient Age: 38
Patient Sex: Male
Vancomycin Day #: 2
Indication: Skin And Soft Tissue
Requesting Provider: Dr. Briseno, Laura Ochoa
Pertinent Antimicrobial Allergies:
none
Height / Weight:
Height 6 ft 1 in
Actual Weight 192.414 kg
Pertinent Past Medical History: BMI 56
- Vital Signs / Lab Results
Temp Pulse Resp BP Pulse Ox
98.6 F 113 20 126/70 96
10/04/24 07:00 10/04/24 07:00 10/04/24 07:00 10/04/24 07:00 10/04/24 07:00
Lab Results - Hematology
10/03/24 10/03/24 10/04/24
00:12 07:14 07:43
WBC 35.0 H 21.6 H 25.2 H
Band Neutrophils 13 H
Lab Results - Chemistry
10/03/24 10/03/24
00:11 07:14
BUN 26 H 21 H
Creatinine 1.4 H 1.1
Estimated Creat Clear > 125
Albumin 3.9
10/03/24
00:15
Lactic Acid 2.0
Microbiology Results
10/03/24 05:04 MRSA Screen - Final
Nose No Methicillin Resistant Staphylococcus aureus isolated.
10/03/24 00:26 Blood Culture - Preliminary
Blood/Venous Streptococcus pyogenes
Gram Stain - Final
10/03/24 00:15 Blood Culture - Preliminary
Blood/Venous Positive culture in progress
Gram Stain - Preliminary
10/02/24 23:42 Influenza Types A & B ([facility]) - Final
Nasal Swab Negative for Influenza A & B, NAAT
Negative results must be combined with clinical observations
and patient history.
Nucleic Acid Amplification test (NAAT)performed on the
[employer] platform.
Therapeutic Drug Monitoring
Random Vancomycin < 5.0 ug/ml 10/04/24 07:43
[2024-10-04] MEDS: NSS 1000 IV (09:19)
[2024-10-04] MEDS: STERILE WATER FOR INJECTION IV (09:28)
[2024-10-04 09:38] LABS: Blood Urea Nitrogen 12 mg/dl (9-20); Calcium 8.7 mg/dl (8.4-10.2); Carbon Dioxide 20 mmol/L (22-30); Chloride 108 mmol/L (98-107); Estimated Creatinine Clearance > 125 ml/min; Glucose 134 mg/dl (70-99); Magnesium 2.1 mg/dl (1.6-2.3); Potassium 3.7 mmol/L (3.5-5.1); Sodium 136 mmol/L (135-145); eGFR > 60.00
[2024-10-04 11:00] VITALS: BP 129/77
[2024-10-04] MEDS: ROCEPHIN 2000 MG IV (11:49)
[2024-10-04] MEDS: STERILE WATER FOR INJECTION 20 ML IV (11:49)
[2024-10-04 12:06] LABS: Lyme Antibody Screen, EIA Negative (Negative)
[2024-10-04] MEDS: ULTRAM 25 MG PO (14:12)
[2024-10-04 15:00] VITALS: BP 127/67
--- NOTE | 2024-10-04 16:02 | WOUNDNOTE ---
RIGHT LE BLISTERS
--- NOTE | 2024-10-04 16:03 | WOUNDNOTE ---
RIGHT LE BLISTER LATERAL VIEW
--- NOTE | 2024-10-04 16:04 | WOUNDNOTE ---
[facility] RN note: Patient admitted with Sepsis secondary to left lower extremity cellulitis
See H&P for complete history.
PMH: anxiety, hyperlipidemia, obesity, DAWN not on CPAP
Wound Location and type/assessment: Patient admitted with: Blisters to left LE. Patient reports blisters appear larger since removing dressing. At time of assessment blisters were intact, no drainage noted. Patient with erythema of right leg
secondary to sepsis. Heels and sacrum intact. Using Desenex for fungal appearing skin of groin.
Pressure redistribution devices in place: Bariatric air bed, patient turns/moves self.
Plan: Pictures sent to Dr. Goncalves and Dr. Mishra. Wound care supplies left at bedside in the case the blister opens. GIA Conklin given update. Will follow as needed.
Note to case management of equipment requested for discharge:
Recommend follow up at wound care center upon discharge.
--- NOTE | 2024-10-04 17:25 | CON.ID ---
Consultation
-
Date/Time Consultation Requested: 10/04/24
Date/Time Consultation Performed: 10/04/24
Requesting Provider: Dr Gamez
Performing Provider: Dr Ronda King
Reason for Consultation: bacteremia with Streptococcus pyogenes
Chief Complaint / Past History
Chief Complaint
Redness and swelling of left lower leg with profound leukocytosis and exquisite pain
History of Present Illness
The patient describes being outside and walking about and having received some scratches as he was walking on his anterior leg and noticed subsequently after arriving home that his leg was uncomfortable and when he looked at his leg he found very
worrisome findings including incredible swelling and bright red erythematous areas on the lower part of frets leg in the area of recent abrasions while outside walking. The patient states that during the few days prior to arrival in the hospital he
had felt incredible fatigue along with occasional chills and occasional sweats with some groin tenderness on the left side he states that he really did not pay much attention to the lower part of his leg where he had received some abrasions.Upon
arrival in the ED he was found to have significant leukocytosis with WBC of 35.0 and PMN of 75% with 13% bandemia but he was afebrile with temperature of 99.7 with LA 2.0 The patient received Vancomycin in the ED with blood cultures drawn. US of the
leg showed no DVT.
Past History
Past Medical History: Hypercholesterolemia and Psychiatric (anxiety, DAWN,morbid obesity with BMI 56.0)
Past Surgical History: Other (nasal septoplasty)
Allergy History:
cement dust Allergy (Uncoded 10/02/24 21:55)
Unknown
Medications Reviewed: Yes
Social History
Tobacco: Vaping
Alcohol: Occasional
Drug: None
Personal:
Living: With Family
Employment: Employed
Family History
Family History: Not Pertinent
Review of Systems
Review of Systems
General: Chills
Endocrine: Fatigue
Musculoskeletal: Joint Pain and Joint Swelling
Skin / Hair / Nails: Other (erythema of lower leg,chiils, sweats)
Vital Signs
Temp Pulse Resp BP Pulse Ox
99.9 F 109 20 127/67 97
10/04/24 15:00 10/04/24 15:00 10/04/24 15:00 10/04/24 15:00 10/04/24 15:00
Physical Exam
Physical Exam
Constitutional: No Acute Distress, Well Developed, Comfortable and Obese
Head: Normocephalic
Eyes: Pupils Equal, Pupils Round, No Conjunctival Hemorrhage and Sclera Anicteric
Pharynx: Benign
Oral: No Thrush and No Ulcers
Cardiovascular: Regular Rate
Pulmonary: Clear
Gastrointestinal: Non Tender (central adiposity)
Genito-Urinary: Other (no flank tenderness)
Extremities: Edema, Erythema and Calf Swelling (left leg with brawny induration, bullae, erythema from thigh to reclamation kettle tender)
Skin: Other (clear other than left leg)
Wound: Other (bullae lower left leg)
Neurological: Awake, Alert, Oriented and AO x 3 (did not see ambulation)
Psychological: Calm (cooperative)
Lab / Diagnostic Study Results
10/04/24 07:43
10/04/24 07:43
Abs Immat Gran (auto) 0.7 10^3/uL (0-0.05) H 10/04/24 07:43
Absolute Neuts (auto) 21.7 10^3/uL (1.4-6.5) H 10/04/24 07:43
Absolute Lymphs (auto) 1.6 10^3/uL (1.2-3.4) 10/04/24 07:43
Absolute Monos (auto) 1.1 10^3/uL (0.1-0.6) H 10/04/24 07:43
Absolute Basos (auto) 0.1 10^3/uL (0-0.2) 10/04/24 07:43
Total Counted 100 10/03/24 00:12
Immature Gran % 2.9 % (0-0.5) H 10/04/24 07:43
Neutrophils % 86.2 % (42.2-75.2) H 10/04/24 07:43
Lymphocytes % 6.2 % (20.5-51.1) L 10/04/24 07:43
Monocytes % 4.2 % (1.7-9.3) 10/04/24 07:43
Eosinophils % 0.3 % (0-6) 10/04/24 07:43
Basophils % 0.2 % (0-2) 10/04/24 07:43
Abs Neuts (Manual) 31.5 10^3/uL (1.4-6.5) H 10/03/24 00:12
Segmented Neutrophils 77 % (42-75) H 10/03/24 00:12
Band Neutrophils 13 % (0-3) H 10/03/24 00:12
Lymphocytes (Manual) 7 % (20-51) L 10/03/24 00:12
Lactic Acid 2.0 mmol/L (0.7-2.0) 10/03/24 00:15
Microbiology Results
Micro:
10/03/24 00:26 Blood Culture - Preliminary
Blood/Venous Streptococcus pyogenes
Gram Stain - Final
10/03/24 00:15 Blood Culture - Preliminary
Blood/Venous Streptococcus pyogenes
Gram Stain - Preliminary
10/03/24 05:04 MRSA Screen - Final
Nose No Methicillin Resistant Staphylococcus aureus isolated.
10/04/24 07:43 Blood Culture - Pending
Blood/Venous
10/02/24 23:42 Influenza Types A & B ([facility]) - Final
Nasal Swab Negative for Influenza A & B, NAAT
Negative results must be combined with clinical observations
and patient history.
Nucleic Acid Amplification test (NAAT)performed on the
[employer] platform.
Assessment / Plan
1. Bacteremia with S. pyogenes 2/2 bottles with patient currently on Ceftriaxone 2 Gm IV Q 24 H repeat blood cultures Q 48 hours until Neg
WBC on admission 33.o with 75% PMN and bandemia 13%
2. Discontinue Vancomycin
3. Local wound care to left lower leg with elevation
Thank you for calling Infectious Disease Consultation
The ID team with follow with yo
Please call us with any questions or concerns
Care Review
Total Time Spent with Patient (in minutes): 55
[2024-10-04] MEDS: LIPITOR 10 MG PO (18:02)
[2024-10-04 19:25] VITALS: BP 141/81
--- NOTE | 2024-10-04 22:00 | PTCARENOTE ---
Patient complaining of pain in left leg. Patient states his pain is only relieved with Tylenol and Tramadol given together. Previous Tramadol order discontinued due to hypotension. [employer] Michael Posadas notified. See MAR. Will continue to monitor.
[2024-10-04] MEDS: AMBIEN 10 MG PO (22:12)
[2024-10-04] MEDS: KLONOPIN 2 MG PO (22:21)
[2024-10-04 23:00] VITALS: BP 133/71
[2024-10-05] MEDS: NSS 1000 IV (02:07)
[2024-10-05 03:00] VITALS: BP 123/64
[2024-10-05] MEDS: TYLENOL 1000 MG PO ×3 (04:46→20:53)
--- NOTE | 2024-10-05 07:08 | W.PN.HOSP.TC ---
Addendum entered and electronically signed by Porfirio Last MD 10/05/24 22:30:
Attending Addendum-
I saw and evaluated the patient. I reviewed the resident�s note and agree with findings and plan as documented in the resident�s note. Sub: seen with present. Complains if pain in LLE and not being given pain meds except Tylenol. Last fever
10/03. Denies abd pain NV. Full 12 point ROS reviewed and negative except as documented Exam: Vitals reviewed in chart GEN-NAD heart RRR no MRG lungs clear abd obese NT ND LE redness warmth, blister popped, on LLE pulses intact TTP less redness
extending into groin pulses intact.
Plan:
# Sepsis secondary to severe LLE cellulitis and bacteremia
- improving, leukocytosis decreasing
- ID consult appreciated
-cont ceftriaxone per ID
- if worsening may benefit from addition of clinda and surgery c/s
- 2/2 blood cx pos for GAS on 10/03
- repeat blood cx 10/04 - NGTD 24 hours
- wound care
-ctm very closely for nec fasc
- neg LE US for DVT
- CPK- low
# Anxiety- cont Klonopin prn
# insomnia- cont zolpidem
# HLD - cont atorvastatin
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
-CODE-Full
-Dispo- eventual DC home with HC
Time spent coordinating care, review of plan of care with resident, personally reviewed records in EMR, med rec, consults, notes, labs, radiology, d/w nursing and POA � 51 mins
Original Note:
Today's Communication/Plan
-
- IV ceftriaxone
- dilaudid prn
- one time lasix
- d/c fluids
- closely monitor skin for progression/worsening
Assessment / Plan
Assessment / Plan
Assessment/plan
#Sepsis secondary to left lower extremity cellulitis
Leukocytosis, and tachycardia with confirmed source of infection meet SIRS criteria
-Blood cultures grew Group A Strep.
-IV ceftriaxone (day 2 - 10/05/2024)
Clinical impression overall points towards improvement
- WBC trending down 25 -> 20
- skin progression appears stable, and less calor on exam
- reassuringly no crepitus or necrosis on my exam
- temperature is within normal limits
- wound care following: wrapped in bandage, and leg to elevation
- Fluids were discontinued to reduce potential volume overlaod contributing to pain in LLE
- IV lasix 40mg once ordered
Pain control
- started dilaudid prn
- consulted PT/OT
- f/u ID recs
#Anxiety
-Continue home clonazepam, zolpidem.
-Reviewed PDMP. No red flags
#Hypercholesterolemia
-Continue atorvastatin
#DAWN not on CPAP
#Morbid obesity BMI 56.7
-Affects all aspects of care
-Uses Ozempic at home
CODE STATUS full code
DVT prophylaxis Lovenox
disposition: pending clinical improvement
Anticipated Discharge: 24 - 48 hours
Subjective/Interval History
-
Date of Service: October 05, 2024
38 yo M PMH HLD, obsesity, anxiety, DAWN not on CPAP p/w swelling and redness of LLE most concerning for cellulitis. Initial VS tachcycardia, tachypnea, and n/f leukocytosis to 35. Admitted, started on IV vancomycin. Blood cultures grew Group A
Strep, sensitivities pending. US negative for DVT.
One blister popped, he developed another small one
Feels okay
he reports feverish with a temperature of 101.1
Objective Data
-
Labs:
Laboratory Results
10/05/24
06:00
WBC Pending
Hgb Pending
Hct Pending
Plt Count Pending
Sodium Pending
Potassium Pending
Chloride Pending
Carbon Dioxide Pending
BUN Pending
Creatinine Pending
Glucose Pending
Calcium Pending
WBC 20 down from 25
Hgb 11.8
Eelctrolytes were pending
Cr
micro
sensitivities pending
Vital Signs:
Vital Signs
Temp Pulse Resp BP Pulse Ox
98.6 F 102 18 123/64 99
10/05/24 03:00 10/05/24 03:00 10/05/24 03:00 10/05/24 03:00 10/05/24 03:00
tmax 100.0
BP 130s/80s
HR 100s
99% on RA
I&O
10/04/24 10/05/24 10/06/24
06:59 06:59 06:59
Intake Total 4015 / 4015 1080 / 1080
Balance 4015 / 4015 1080 / 1080
Review of Systems
-
History Source: Patient
Constitutional: Reports Fever
EENT: Reports No Symptoms Reported
Respiratory: Reports No Symptoms
Cardiac: Reports No Symptoms
Abdomen/GI: Reports No Symptoms
Genitourinary: Reports No Symptoms
Skin: Reports Other (blisters, pain in MICHELLE)
Neuro: Reports No Symptoms
Physical Exam
-
General: No Apparent Distress
HEENT: Normocephalic and Atraumatic
Respiratory: Clear to Auscultation
Cardiac: Regular Rhythm and Other (no murmurs on my exam)
GI: Soft and Nontender
Skin: Warm and Other (left lower extremity: erythema, tenderness to palpation, and warmth. no crepitus on my exam. blister popped, and 1 small blister on left lower extremity)
Neuro: Awake and Alert
Psych: Calm
[2024-10-05 07:54] LABS: Hematocrit 34.9 % (39.0-52.0); Hemoglobin 11.8 g/dL (13.0-18.0); Mean Corp Hgb Conc. 33.8 g/dL (33.0-37.0); Mean Corpuscular Volume 86.6 fL (80.0-94.0); Platelet Count 215 10^3/uL (130-400); Red Cell Dist. Width 13.2 % (11.5-14.5)
[2024-10-05] MEDS: LOVENOX 60 MG SC ×2 (07:57→20:44)
[2024-10-05 08:10] VITALS: BP 132/80
[2024-10-05 08:58] LABS: Blood Urea Nitrogen 6 mg/dl (9-20); Calcium 8.5 mg/dl (8.4-10.2); Carbon Dioxide 22 mmol/L (22-30); Chloride 105 mmol/L (98-107); Estimated Creatinine Clearance > 125 ml/min; Glucose 144 mg/dl (70-99); Potassium 3.6 mmol/L (3.5-5.1); Sodium 135 mmol/L (135-145); eGFR > 60.00
[2024-10-05 11:20] VITALS: BP 125/75
[2024-10-05] MEDS: ROCEPHIN 2000 MG IV (11:55)
[2024-10-05] MEDS: STERILE WATER FOR INJECTION 20 ML IV (11:55)
[2024-10-05] MEDS: NSS IV (13:13)
[2024-10-05] MEDS: DILAUDID 0.5 MG IV ×2 (15:00→21:28)
[2024-10-05] MEDS: LASIX 40 MG IV (15:00)
[2024-10-05] MEDS: LIPITOR 10 MG PO (17:30)
--- NOTE | 2024-10-05 19:13 | W.PN.ID1 ---
Date of Service
Date of Service: October 05, 2024
Today's Communication
patient discussed with with repeat blood cultures currently without growth
Assessment / Plan
1. Bacteremia with S. pyogenes 2/2 bottles with patient currently on Ceftriaxone 2 Gm IV Q 24 H repeat blood cultures Q 48 hours until Neg
WBC on admission 33.o with 75% PMN and bandemia 13% now improved with WBC today decreased to 20.2
2. Discontinue Vancomycin continue Ceftriaxone 2 Gm Q 24h
3. Local wound care to left lower leg with elevation
Thank you for calling Infectious Disease Consultation
The ID team with follow with you
Please call us with any questions or concerns
Chief Complaint
-: Fever (with cultures positive for Streptococcus pyogenes), Leukocytosis, Clinical Sepsis, Cellulitis and Bacteremia
Subjective / Review of Systems
Review of Systems: No Fever, Chills, No Headache, No Pharyngitis, No Stiff Neck, Swollen Lymph Nodes, No Swollen Lymph Nodes, No Cough, No Sputum Production, No Chest Pain, No Palpitations, No Abdominal Pain, No Nausea, No Vomiting, No Diarrhea, No
Dysuria and Skin Rash (decreased erythema of left leg with lower leg sill painful and edematous)
Vital Signs / Physical Exam
Vital Signs
Vital Signs
Temp Pulse Resp BP Pulse Ox
97.6 F 108 15 124/82 99
10/05/24 11:20 10/05/24 15:00 10/05/24 11:20 10/05/24 15:00 10/05/24 11:20
Physical Exam
Constitutional: Well Developed, Acutely Ill and Obese (less toxic in appearance today)
Head: Normocephalic
Eyes: Pupils Equal, Pupils Round, No Conjunctival Hemorrhage and Sclera Anicteric
Oropharyngeal: Erythema
Cardiovascular: Regular Rate
Pulmonary: Clear
Gastrointestinal: Soft, Non Tender, Non Distended, Normal Bowel Sounds, No Rebound and No Guarding
Genito-Urinary: Clear Urine
Extremities: Edema, Erythema and Calf Swelling (left leg erythema)
Skin: Warm and Dry (bullae left leg with continued erythema left lower leg with thigh improved)
Wound: None
Neurological: AO x 3 and No Motor Deficits (gait not evaluated)
Psychological: Calm
Objective Data
Lab Data
Lab Results
10/05/24 07:15
10/05/24 07:15
Estimated Creat Clear > 125 ml/min 10/05/24 07:15
Lactic Acid 2.0 mmol/L (0.7-2.0) 10/03/24 00:15
Total Bilirubin 1.6 mg/dl (0.2-1.3) H 10/03/24 00:11
AST 28 U/L (17-59) 10/03/24 00:11
ALT 83 U/L (0-50) H 10/03/24 00:11
Alkaline Phosphatase 116 U/L (38-126) 10/03/24 00:11
Most recent labs reviewed.
Microbiology: Report Reviewed
Micro Results:
10/03/24 00:26 Blood Culture - Preliminary
Blood/Venous Streptococcus pyogenes
Gram Stain - Final
10/04/24 07:43 Blood Culture - Preliminary
Blood/Venous No Growth in 24 hours- Final report to follow
10/03/24 00:15 Blood Culture - Preliminary
Blood/Venous Streptococcus pyogenes
Gram Stain - Preliminary
10/03/24 05:04 MRSA Screen - Final
Nose No Methicillin Resistant Staphylococcus aureus isolated.
10/02/24 23:42 Influenza Types A & B ([facility]) - Final
Nasal Swab Negative for Influenza A & B, NAAT
Negative results must be combined with clinical observations
and patient history.
Nucleic Acid Amplification test (NAAT)performed on the
[employer] platform.
Chest X-Ray: Image Reviewed
Care Review
Plan reviewed with: Physician ( and patient )
Total Time Spent with Patient (in minutes): 35
[2024-10-05 19:29] VITALS: BP 159/84
[2024-10-05] MEDS: AMBIEN 10 MG PO (22:01)
[2024-10-05 23:30] VITALS: BP 129/83
[2024-10-05] MEDS: KLONOPIN 2 MG PO (23:45)
[2024-10-06] VITALS (8 sets, daily range): BP systolic 122–133; BP diastolic 73–84; PULSE 108; O2SAT 95; BMI 56.7
[2024-10-06] MEDS: DILAUDID 0.5 MG IV ×3 (03:59→17:26)
[2024-10-06 06:32] LABS: Hematocrit 35.7 % (39.0-52.0); Hemoglobin 12.1 g/dL (13.0-18.0); Mean Corp Hgb Conc. 33.9 g/dL (33.0-37.0); Mean Corpuscular Volume 86.0 fL (80.0-94.0); Platelet Count 233 10^3/uL (130-400); Red Cell Dist. Width 13.1 % (11.5-14.5)
--- NOTE | 2024-10-06 07:11 | W.PN.HOSP.TC ---
Addendum entered and electronically signed by Porfirio Last MD 10/06/24 23:02:
Attending Addendum-
I saw and evaluated the patient. I reviewed the resident�s note and agree with findings and plan as documented in the resident�s note. Sub: seen with present. pain in LLE improving, redness and swelling improved. blisters popped. Last fever
10/03. Denies abd pain NV. Full 12 point ROS reviewed and negative except as documented Exam: Vitals reviewed in chart GEN-NAD heart RRR no Murmurs lungs clear abd obese NT ND LE redness warmth, blister popped, on LLE pulses intact TTP less redness
extending into groin pulses intact.
Plan:
# Sepsis secondary to severe LLE cellulitis and bacteremia
- improving, leukocytosis decreasing
- ID consult appreciated
- cont ceftriaxone per ID
- 2/2 blood cx pos for GAS on 10/03
- repeat blood cx 10/04 - NGTD
- wound care
-ctm very closely for progression
- neg LE US for DVT
- CPK- low
- check 2decho for completeness per ID
- may need IV abx on dc per ID - hopeful transition to PO abx.
# Anxiety- cont Klonopin prn
# insomnia- cont zolpidem
# HLD - cont atorvastatin
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
-CODE-Full
-Dispo- eventual DC home with HC
Time spent coordinating care, review of plan of care with resident, personally reviewed records in EMR, med rec, consults, notes, labs, radiology, d/w nursing and POA � 52 mins
Original Note:
Today's Communication/Plan
-
- continue IV ceftriaxone
- monitor skin for progression and monitor VS
- f/u ID for recommendations
Assessment / Plan
Assessment / Plan
Assessment/plan
38 yo M PMH HLD, obsesity, anxiety, DAWN not on CPAP p/w swelling and redness of LLE most concerning for sepsis due to cellulitis.
#Sepsis secondary to left lower extremity cellulitis
Leukocytosis, and tachycardia with confirmed source of infection meet SIRS criteria
- has been persistently tachycardic
-Blood cultures grew Group A Strep.
-IV ceftriaxone (day 3 - 10/06/2024)
Clinical impression overall points towards improvement
- WBC 19 from 20 yesterday
- skin progression appears stable, but more erythematous within the boundaries
- reassuringly no crepitus or necrosis on my exam
- temperature is within normal limits
- wound care following: wrapped in bandage, and leg to elevation
Pain control: continue dilaudid prn
- f/u ID recs about ambulating and when might be reasonable to switch from IV to PO abx
# Tachycardia
- has been persistently tachycardic
- no dyspnea, denies chest pain, O2sat is > 95% on RA
- could be attributed to sepsis/cellulitis, insufficient pain control though patient reports that his pain is under control
- monitor VS
#Anxiety
-Continue home clonazepam, zolpidem.
-Reviewed PDMP. No red flags
#Hypercholesterolemia
-Continue atorvastatin
#DAWN not on CPAP
#Morbid obesity BMI 56.7
-Affects all aspects of care
-Uses Ozempic at home
CODE STATUS full code
DVT prophylaxis Lovenox
disposition: pending clinical improvement
Anticipated Discharge: 24 - 48 hours
Subjective/Interval History
-
Date of Service: October 06, 2024
38 yo M PMH HLD, obsesity, anxiety, DAWN not on CPAP p/w swelling and redness of LLE most concerning for sepsis due to cellulitis.
bandages were wrapped, but reported a few more blisters
feeels that pain is better controlled
Objective Data
-
Labs:
Laboratory Results
10/06/24
06:19
WBC 19.4 H
Hgb 12.1 L
Hct 35.7 L
Plt Count 233
Sodium Pending
Potassium Pending
Chloride Pending
Carbon Dioxide Pending
BUN Pending
Creatinine Pending
Glucose Pending
Calcium Pending
electrolytes within nomral limits
Vital Signs:
Vital Signs
Temp Pulse Resp BP Pulse Ox
97.8 F 92 20 133/82 97
10/06/24 03:34 10/06/24 03:34 10/06/24 03:34 10/06/24 03:34 10/06/24 03:34
afebrile
BP in 120s-130s/80s
persistently tachycardic in low 100s
I&O
10/05/24 10/06/24 10/07/24
06:59 06:59 06:59
Intake Total 1080 / 1080 2760 / 2760
Output Total 950 / 950
Balance 1080 / 1080 1810 / 1810
Review of Systems
-
History Source: Patient
Constitutional: Reports Fever
EENT: Reports No Symptoms Reported
Respiratory: Reports No Symptoms
Cardiac: Reports No Symptoms
Abdomen/GI: Reports No Symptoms
Genitourinary: Reports No Symptoms
Skin: Reports Other (blisters, pain in MICHELLE)
Neuro: Reports No Symptoms
Physical Exam
-
General: No Apparent Distress
HEENT: Normocephalic and Atraumatic
Respiratory: Clear to Auscultation
Cardiac: Regular Rhythm and Other (no murmurs on my exam)
GI: Soft and Nontender
Skin: Warm and Other (left lower extremity: erythema appears more in intensity but not in progression beyond boundaries, tenderness to palpation, and warmth. no crepitus on my exam. blisters reportedly on left lower extremity)
Neuro: Awake and Alert
Psych: Calm
[2024-10-06 07:22] LABS: Blood Urea Nitrogen 11 mg/dl (9-20); Calcium 8.5 mg/dl (8.4-10.2); Carbon Dioxide 25 mmol/L (22-30); Chloride 102 mmol/L (98-107); Estimated Creatinine Clearance > 125 ml/min; Glucose 133 mg/dl (70-99); Potassium 3.5 mmol/L (3.5-5.1); Sodium 135 mmol/L (135-145); eGFR > 60.00
[2024-10-06] MEDS: LOVENOX 60 MG SC ×2 (07:44→21:14)
[2024-10-06] MEDS: STERILE WATER FOR INJECTION 20 ML IV (11:00)
[2024-10-06] MEDS: ROCEPHIN 2000 MG IV (11:00)
[2024-10-06] MEDS: TYLENOL 1000 MG PO ×2 (16:03→22:05)
--- NOTE | 2024-10-06 16:30 | W.PN.ID1 ---
Date of Service
Date of Service: October 06, 2024
Today's Communication
discussion with and patient and likely PICC line insertion prior to discharge when leukocytosis improved
Assessment / Plan
1. Bacteremia with S. pyogenes 2/2 bottles with patient currently on Ceftriaxone 2 Gm IV Q 24 H repeat blood cultures Q 48 hours until Neg
WBC on admission 33.o with 75% PMN and bandemia 13% now improved with WBC today decreased to 19.4
Repeat blood cultures now with NGTD at 48 hours
if not done yet would get TTE to rule out endocarditis
2. Discontinue Vancomycin continue Ceftriaxone 2 Gm Q 24h will eventually go home on IV Ceftriaxone
3. Local wound care to left lower leg with elevation
Consult wound care team if not currently involved for care of right lower leg skin/bullae
Patient ambulated some today with PT and encouraged to exercise foot/leg in bed
Thank you for calling Infectious Disease Consultation
The ID team with follow with you
Please call us with any questions or concerns
Chief Complaint
-: Fever (with cultures positive for Streptococcus pyogenes), Leukocytosis, Clinical Sepsis, Cellulitis and Bacteremia
Subjective / Review of Systems
Review of Systems: No Fever, No Chills, No Headache, No Pharyngitis, No Stiff Neck, No Swollen Lymph Nodes, No Cough, No Sputum Production, No Chest Pain, No Palpitations, No Abdominal Pain, No Nausea, No Vomiting, No Diarrhea, No Dysuria, Joint
Pain (knee on left and to lesser exteent ankle) and Skin Rash (continued erythema but is receding and is largely below knee now //with calf and lower leg with greatest erythema and skin changes with some small bullae)
Vital Signs / Physical Exam
Vital Signs
Vital Signs
Temp Pulse Resp BP Pulse Ox
99.3 F 112 20 127/73 95
10/06/24 15:26 10/06/24 15:26 10/06/24 15:26 10/06/24 15:26 10/06/24 15:26
Physical Exam
Constitutional: Well Developed, Comfortable, Acutely Ill, Non-toxic and Obese
Head: Normocephalic
Eyes: Pupils Equal, Pupils Round, No Conjunctival Hemorrhage and Sclera Anicteric
Oropharyngeal: Benign
Cardiovascular: Regular Rate
Pulmonary: Clear and Non Labored
Gastrointestinal: Soft, Non Tender, Non Distended and Normal Bowel Sounds
Extremities: Erythema and Calf Swelling (continued erythema of left lower leg with small bullae , induration, swelling continued but improved on left lower leg)
Skin: Warm and Dry (with exception of left lower leg with skin defects, small bullae tenderness)
Neurological: Awake, Alert, Oriented, AO x 3 and No Motor Deficits (is walking some /worked with pt this AM)
Psychological: Calm (cooperative, pleasant, conversant)
Objective Data
Lab Data
Lab Results
10/06/24 06:19
10/06/24 06:19
Estimated Creat Clear > 125 ml/min 10/06/24 06:19
Lactic Acid 2.0 mmol/L (0.7-2.0) 10/03/24 00:15
Total Bilirubin 1.6 mg/dl (0.2-1.3) H 10/03/24 00:11
AST 28 U/L (17-59) 10/03/24 00:11
ALT 83 U/L (0-50) H 10/03/24 00:11
Alkaline Phosphatase 116 U/L (38-126) 10/03/24 00:11
Most recent labs reviewed.
Microbiology: Report Reviewed
Micro Results:
10/04/24 07:43 Blood Culture - Preliminary
Blood/Venous No Growth in 48 hours- Final report to follow
10/03/24 00:26 Blood Culture - Preliminary
Blood/Venous Streptococcus pyogenes
Gram Stain - Final
10/03/24 00:15 Blood Culture - Preliminary
Blood/Venous Streptococcus pyogenes
Gram Stain - Preliminary
10/03/24 05:04 MRSA Screen - Final
Nose No Methicillin Resistant Staphylococcus aureus isolated.
10/02/24 23:42 Influenza Types A & B ([facility]) - Final
Nasal Swab Negative for Influenza A & B, NAAT
Negative results must be combined with clinical observations
and patient history.
Nucleic Acid Amplification test (NAAT)performed on the
[employer] platform.
Chest X-Ray: Report Reviewed
Care Review
Plan reviewed with: Physician ( and patient )
Total Time Spent with Patient (in minutes): 35
[2024-10-06] MEDS: LIPITOR 10 MG PO (17:26)
[2024-10-06] MEDS: KLONOPIN 2 MG PO (22:04)
[2024-10-06] MEDS: AMBIEN 10 MG PO (22:05)
[2024-10-07] VITALS (9 sets, daily range): BP systolic 123–150; BP diastolic 64–99
[2024-10-07] MEDS: DILAUDID 0.5 MG IV ×4 (00:07→16:44)
[2024-10-07] MEDS: TYLENOL 1000 MG PO ×2 (04:19→20:49)
[2024-10-07 07:04] LABS: Hematocrit 35.4 % (39.0-52.0); Hemoglobin 12.0 g/dL (13.0-18.0); Mean Corp Hgb Conc. 33.9 g/dL (33.0-37.0); Mean Corpuscular Volume 86.1 fL (80.0-94.0); Platelet Count 232 10^3/uL (130-400); Red Cell Dist. Width 13.0 % (11.5-14.5)
--- NOTE | 2024-10-07 07:11 | W.PN.HOSP.TC ---
Addendum entered and electronically signed by Porfirio Last MD 10/07/24 21:52:
Attending Addendum-
I saw and evaluated the patient. I reviewed the resident�s note and agree with findings and plan as documented in the resident�s note. Sub: seen with present. alerted by wound care re discoloration of LE. urgently went to bedside. patient is in
extreme pain in LE and anxious. Last fever 10/03. Denies abd pain NV. 'things are getting worse' Full 12 point ROS reviewed and negative except as documented Exam: Vitals reviewed in chart GEN-mod distress heart tachycardic no Murmurs lungs clear abd
obese NT ND LE skin appears dusky dark, warmth appreciated, b/l feet appear pale but warm and pulses faint but intact, less redness extending into groin
Plan:
# Sepsis secondary to severe LLE cellulitis and bacteremia
- appears to be worsening but leukocytosis mildly decreasing
- ID consult appreciated
- cont ceftriaxone per ID
- stat surgery c/s for eval- likely will need I and D possible fasciotomy r/o compartment syndrome / nec fasc
- 2/2 blood cx pos for GAS on 10/03
- repeat blood cx 10/04 - NGTD
- repeat blood cx in am
- wound care
-transfer to ICU
- neg LE US for DVT
- 2decho- Normal biventricular size and systolic function without regional wall motion abnormality. Estimated LVEF 55-60%.
No significant valve disease.
No vegetation visualized within limits of TTE.
- t/c addition of clinda
# Anxiety- cont Klonopin prn
# insomnia- cont zolpidem
# HLD - cont atorvastatin
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
-DVT-p lovenox weight adjusted
-CODE-Full
CC Note
Due to a high probability of clinically significant, life-threatening deterioration, the patient required a high level of preparedness to intervene emergently. I personally spent this critical care time directly and personally managing the patient.
This critical care time included obtaining a history; examining the patient; ordering and review of studies and STAT labs; arranging urgent treatment with development of a management plan; evaluation of patient's response to treatment; reassessment;
and, discussions with other providers.
This critical care time was performed to assess and manage the high probability of imminent, life-threatening deterioration that could result in multi-organ failure. It was exclusive of separately billable procedures and treating other patients and
teaching time. D/W Surgery ID and POA at great length
Total critical care time: Approximately 32 minutes
Original Note:
Today's Communication/Plan
-
- there is concern for necrotizing fasciitis
- surgery consult
- made NPO
- CT lower extremity w IV contrast, Left
- continue IV ceftriaxone
- f/u ID recs
Assessment / Plan
Assessment / Plan
Assessment/plan
38 yo M PMH HLD, obsesity, anxiety, DAWN not on CPAP p/w swelling and redness of LLE with crepitus newly appreciated on exam raising concern for necrotizing fasciitis with sepsis and cellulitis.
#Sepsis secondary to necrotizing fasciitis
#Sepsis secondary to left lower extremity cellulitis
- Leukocytosis, and tachycardia with confirmed source of infection meet SIRS criteria
- Blood cultures from 10/03 grew Group A Strep. ; Cultures from 10/04 show no growth in 72hrs
- Today's skin exam shows new crepitus and darkened patches raising concern for necrotizing fasciitis
- Surgery consult ordered
- NPO ordered
- CT lower extremity with IV contrast of Left ordered
- per Dr. King (ID), continue IV ceftriaxone 2mg q24h (today is DAY #5)
- pain control: increase to dilaudid 1mg q6h prn
- transfer to ICU
- the patient has been apprised of the situation
- will defer TTE until after surgical evaluation/intervention
# Tachycardia
- has been persistently tachycardic
- no dyspnea, denies chest pain, O2sat is > 95% on RA
- could be attributed to concerning necrotizing fasciitis, sepsis, cellulitis
- monitor VS
#Anxiety
-Continue home clonazepam, zolpidem.
-Reviewed PDMP. No red flags
#Hypercholesterolemia
-Continue atorvastatin
#DAWN not on CPAP
#Morbid obesity BMI 56.7
-Affects all aspects of care
-Uses Ozempic at home
CODE STATUS full code
DVT prophylaxis Lovenox
disposition: pending clinical improvement
Anticipated Discharge: 24 - 48 hours
Subjective/Interval History
-
Date of Service: October 07, 2024
met with wound care, examination of the wounds on LLE raises concern for necrotizing fasciitis.
Objective Data
-
Labs:
Laboratory Results
10/07/24
06:25
WBC 18.6 H
Hgb 12.0 L
Hct 35.4 L
Plt Count 232
Sodium Pending
Potassium Pending
Chloride Pending
Carbon Dioxide Pending
BUN Pending
Creatinine Pending
Glucose Pending
Calcium Pending
WBC 18.6 from 19.4
Hgb 12
Plt 232
Lytes within normal limits
blood culture was no growth in 72 hours
Vital Signs:
Vital Signs
Temp Pulse Resp BP Pulse Ox
98.0 F 92 16 125/78 97
10/07/24 03:04 10/07/24 03:04 10/07/24 03:04 10/07/24 03:04 10/07/24 03:04
afebrile
tachycardia 100s
I&O
10/06/24 10/07/24 10/08/24
06:59 06:59 06:59
Intake Total 2760 / 2760 2160 / 2160
Output Total 950 / 950 1600 / 1600
Balance 1810 / 1810 560 / 560
Review of Systems
-
History Source: Patient
Constitutional: Reports No Symptoms
EENT: Reports No Symptoms Reported
Respiratory: Reports No Symptoms
Cardiac: Reports No Symptoms
Abdomen/GI: Reports No Symptoms
Genitourinary: Reports No Symptoms
Musculoskeletal: Reports No Symptoms
Skin: Reports Other (pain in LLE)
Neuro: Reports No Symptoms
Endocrine: Reports No Symptoms
Physical Exam
-
General: Appears in Distress
HEENT: Normocephalic and Atraumatic
Respiratory: Clear to Auscultation
Cardiac: Regular Rhythm and Other (no murmurs on my exam)
GI: Soft and Nontender
Skin: Warm and Other (left lower extremity (examined in conjunction with Dr. King): tenderness to palpation; bullae; darkening of skin is concerning for necrosis; crepitus on our exam)
Neuro: Awake and Alert
Psych: Calm
[2024-10-07] MEDS: LOVENOX 60 MG SC (07:22)
[2024-10-07 07:37] LABS: Blood Urea Nitrogen 9 mg/dl (9-20); Calcium 8.0 mg/dl (8.4-10.2); Carbon Dioxide 30 mmol/L (22-30); Chloride 101 mmol/L (98-107); Estimated Creatinine Clearance > 125 ml/min; Glucose 140 mg/dl (70-99); Potassium 3.6 mmol/L (3.5-5.1); Sodium 137 mmol/L (135-145); eGFR > 60.00
[2024-10-07] MEDS: KLONOPIN 2 MG PO ×2 (09:56→22:17)
--- NOTE | 2024-10-07 10:51 | CON.GS ---
Addendum entered and electronically signed by Donny Ford MD 10/07/24 15:20:
Patient seen and examined independently of surgical garment inspector.
HPI: 38-year-old male admitted with left lower extremity cellulitis by the hospitalist service on 10/02/2024. He initially noted clinical improvement but over the last 24 hours there is worsening pain in the extremity. That being said his white
blood cell count continues to improve, he has active range of motion in the extremity which does not exacerbate the pain. The pain is worse to the touch or when standing.
Past past medical history notable for obesity with a BMI of 56.7, anxiety, hyperlipidemia, DAWN
AFVSS -previous tachycardia is improving
NAD AAO x 3. Multiple family members at bedside
Left lower extremity with severe cellulitis along the anterior tibial regions both medially and laterally. Posterior calf compartment soft and with less cellulitic changes. Skin cyanosis and blistering. There is no crepitus. There is pain on
palpation. There is no passive range of motion pain.
Assessment/plan: 38-year-old male with severe left lower extremity cellulitis. He has actually shown clinical improvement from an objective standpoint with improving WBC, less tachycardia and stable vital signs. The cyanosis visible in the lower
extremity is likely due to the degree of edematous tissue from the severity of his cellulitis.
There is no palpable crepitus, there is no pain with passive or active range of motion in the muscular compartments. The pain is all along the superficial dermis.
While necrotizing fasciitis is on the differential diagnosis he is not clinically behaving in a typical course of a necrotizing soft tissue infection. There is likely progressive skin cyanosis due to the degree of edematous tissue. In the setting
I did offer surgical intervention as decompressing the skin compartments and subcutaneous tissues may alleviate some of the pressure on the skin and hopefully minimize further cyanosis leading to necrosis. It will also allow for evaluation of the
subcutaneous compartments and fascia for any potential deeper soft tissue necrosis or necrotizing fasciitis.
Obtaining a CT of the extremity is unlikely to change our options or treatment course at this point therefore canceled study.
Patient advises that he is agreeable and would like to proceed with surgery.
Debridement left lower extremity with anticipated decompression incisions through the skin and subcutaneous tissues and evaluation of the anterior and lateral fascial compartments was reviewed in detail with the patient and his family members at
bedside obtaining written informed consent
Patient on OR schedule for today
Original Note:
Consultation
-
Reason for Consultation: left side cellulitis
Medical History
-
Chief Complaint: left side lower leg rashes and painful while on walking
History of Present Illness:
Patient left side lower leg rashes, swelling, blister started as a small pimple in size on Friday, and its increasing in size and painful on Friday, he noticed there are multiple blisters and increasing in size towards the knee and the foot.
Patient remember 2 weeks ago he went for the camping where he got a scratch on his left leg which was not painful, non tender at the time of presentation, and the scratch was completely healed (and theres no relation between the current presentation
according to the patient.) Rash is progressively increasing in nature, associated with pain while on walking, and pain not reduced by pain killers and current antibiotic (Ceftriaxone). no similar previous episode.
Past Medical History
Past Medical History: Other (anxiety, hyperlipidemia, DAWN. )
Past Surgical History: Other (nasal septoplasty)
Social History
Tobacco: Vaping
Alcohol: Occasional
Personal:
Living: With Family
Employment: Employed
Allergies / Home Medications
Allergy/AdvReac Type Severity Reaction Status Date / Time
cement dust Allergy Unknown Uncoded 10/02/24 21:55
�Medication �Instructions �Recorded �Confirmed �Type
atorvastatin 10 mg tablet 10 mg PO HS cholesterol 10/04/24 10/04/24 History
clonazepam 2 mg tablet 2 mg PO TIDPRN PRN anxiety 10/04/24 10/04/24 History
diclofenac sodium 75 mg 75 mg PO BIDPRN PRN leg pain 10/04/24 10/04/24 History
tablet,delayed release
semaglutide 2 mg/dose (8 mg/3 mL) 2 mg SC WEEKLY Friday10/04/24 10/04/24 History
subcutaneous pen injector (Ozempic)
zolpidem 10 mg tablet 10 mg PO HSPRN PRN sleep 10/04/24 10/04/24 History
Review of Systems
-
History Source: Patient
Constitutional: Fatigue, Chills and Other (patient feels feverish)
EENT: No Symptoms
Respiratory: No Symptoms
Cardiac: No Symptoms
Abdomen/GI: No Symptoms
: No Symptoms
Musculoskeletal: Edema
Skin: Rash and Other (Left side lower leg: Redness with rapid skin color change into black today morning. associated with pain and restriction of movement. )
Neurological: No Symptoms
Endocrine: No Symptoms
A 10 point review of systems was completed, and was negative except as per HPI.
Physical Exam
Vital Signs
Temp Pulse Resp BP Pulse Ox
98.2 F 108 20 131/64 94
10/07/24 07:45 10/07/24 07:45 10/07/24 07:45 10/07/24 07:45 10/07/24 07:45
10/06/24 10/07/24 10/08/24
06:59 06:59 06:59
Actual Weight 195.045 kg
Body Mass Index (BMI) 56.7
Lab Results
10/07/24 06:25
10/07/24 06:25
WBC 18.6 10^3/uL (4.8-10.8) H 10/07/24 06:25
Hgb 12.0 g/dL (13.0-18.0) L 10/07/24 06:25
Hct 35.4 % (39.0-52.0) L 10/07/24 06:25
Plt Count 232 10^3/uL (130-400) 10/07/24 06:25
Abs Immat Gran (auto) 0.7 10^3/uL (0-0.05) H 10/04/24 07:43
Neutrophils % 86.2 % (42.2-75.2) H 10/04/24 07:43
Physical Exam
General: Well Developed
Respiratory: Clear
Cardiac: S1/S2 and Regular Rhythm
GI: Soft
Skin: Warm and Other (left side below the knee: Warm, tender, red rashes which is rapidly increase in nature, skuin turned into black color, with 3 pustules. restriction of movement present.non purulent discharge )
Neuro: AO x 3
Psych: Calm
Assessment / Plan
-
38 yo M PMH HLD, obsesity, anxiety, DAWN not on CPAP p/w swelling and redness of LLE most concerning for sepsis due to cellulitis.
# Sepsis secondary to left leg Cellulitis/ necrotizing fascitis:
Leukocytosis, and tachycardia with confirmed source of infection meet SIRS criteria
- has been persistently tachycardic
-Blood cultures grew Group A Strep.
-IV ceftriaxone (day 3 - 10/07/2024)
Clinical impression overall points towards improvement
- WBC = 20.2 -->19.4-->18.6
- skin progression appears black, and rash is increasing in nature, more erythematous spreading towards to knee and the left side foot.
-Pustules, necrosis.
-temperature is within normal limits probably due to tylenol administration.
# USG of the left lower extremity on 10/02/24 : No sonographic evidence for left lower extremity deep venous thrombosis.
DVT prophylaxis: Lovenax
CODE: Full.
--- NOTE | 2024-10-07 11:28 | WOUNDNOTE ---
WO RN NOTE: Received TT for RN Btety requesting WO sap treasury consultant for worsening left LE wounds, blisters and drainage. TT Dr. Gamez so he could be present during assessment. Dr. King also present during assessment. Patient reports increased
pain of left LLE since yesterday. Blisters draining clear yellow drainage. Lateral blister has enlarged since prior assessment. Posterior skin is dark purplish/brown and scant areas of crepitus noted during assessment with Dr. King. This specification writer
obtained wound cultures. Drainage managed with absorptive dressings and wrapped with white pad to help manage drainage. A surgical consult was ordered. Patient given emotional support by all staff. Will continue to follow during in-patient stay.
[2024-10-07] MEDS: STERILE WATER FOR INJECTION 20 ML IV (11:29)
[2024-10-07] MEDS: ROCEPHIN 2000 MG IV (11:29)
[2024-10-07] MEDS: DILAUDID 1 MG IV ×2 (12:16→23:37)
--- NOTE | 2024-10-07 15:20 | W.SUR.PREOP ---
Pre-Operative Surgical Note
-
I have examined this patient prior to the performance of the scheduled procedure.
The patient's condition is unchanged from the time of the current History and
Physical and the patient is able to undergo the scheduled procedure.
--- NOTE | 2024-10-07 16:39 | W.IMMPOSTOP ---
Addendum entered and electronically signed by Donny Ford MD 10/11/24 16:20:
#[id number]
Original Note:
Surgical Immed Post Op Note
-
Primary Surgeon: Donny Ford MD
Assisting Surgeon: Miguel Viramontes
Pre-op Diagnosis: Left lower extremity severe cellulitis; possible necrotizing soft tissue infection, possible compartment syndrome
Post-op Diagnosis: Left lower extremity severe cellulitis
Procedure Performed: Incision and drainage left lower extremity with fasciotomy
Anesthesia Type: GETA
Specimen / Cultures: Deep soft tissue cultures
Estimated Blood Loss: 50 mL
Complications: None immediate
Operative Findings: Superficial desquamation of the epithelium but viable dermis. Severe cellulitis. Decompression incisions made along the left anterior medial tibial region and left anterior lateral leg. Subcutaneous fat and fascia layers
healthy and viable, just edematous. Deep cultures obtained overlying fascia. Posterior compartment decompressed along the posterior medial tibia without purulence or sign of deep infection. Anterior lateral compartment decompressed as well with
also clean tissue planes. Given extensiveness of edema left compartments open. Left anterior incision 15 cm x 3 cm x 2 cm deep. Left posterior lateral incision site 25 cm x 3 cm x 2 cm deep. Betadine Kerlix packing with Kerlix wrap and ABDs.
Plan: Bedside dressing change in 24 hours.
Continue current supportive care
Updated patient postoperatively via phone call
[2024-10-07] MEDS: DILAUDID 0.25 MG IV (16:59)
--- NOTE | 2024-10-07 18:11 | W.PN.ID1 ---
Date of Service
Date of Service: October 07, 2024
Today's Communication
wound care team
hospitalist team
nursing
Assessment / Plan
1. Bacteremia with S. pyogenes 2/2 bottles with patient currently on Ceftriaxone 2 Gm IV Q 24 H repeat blood cultures with NGTD
WBC on admission 35.o with 75% PMN and bandemia 13% now improved with WBC today decreased
Repeat blood cultures now with NGTD
if not done yet would get TTE to rule out endocarditis
2. Ceftriaxone 2 Gm Q 24h will eventually go home on IV Ceftriaxone
3. Local wound care to left lower leg with elevation
Consult wound care team if not currently involved for care of right lower leg skin/bullae
Patient ambulated some yesterday with PT and encouraged to exercise foot/leg in bed
Concerning new appearance of left lower leg with suspicion of necrotizing fasciitis with skin dusky and leg more swollen and painful
Wound care called me shortly after 9AM to see patient with findings above
4. Hospitalist team called this AM and advised to obtain CT of left lower leg to assess for compartment syndrome
Advised to obtain STAT surgical consult to evaluate for necrotizing fasciitis/compartment syndrome
Make patient NPO for likely surgery
Diagnosis and plan discussed with
Thank you for calling Infectious Disease Consultation
The ID team with follow with you
Please call us with any questions or concerns
Chief Complaint
-: Fever (with cultures positive for Streptococcus pyogenes), Leukocytosis, Clinical Sepsis, Cellulitis and Bacteremia
Subjective / Review of Systems
I was called to bedside shortly after 9 AM this morning by wound care team to assess new findings of patient's lower left leg with new presence of dusky/dark skin color in setting of ongoing cellulitis,swelling, bullae with continued serous
drainage. The upper leg remains mildly erythematous and less swollen with lower leg erythema now with concerning dark discoloration with continued bullae. On the lower lateral portion there was mild crepitus and significant continued pain. The
patient has repeat blood cultures with NGTD with resolved fever and slowly improving leukocytosis.
His only complaint this AM is that of pain and concern about the change in color of his skin.
My concern in this setting with S. pyogenes infection is necrotizing fasciitis with compartment syndrome . The hospitalist team was called and advised to obtain CT to assess for compartment syndrome and obtain STAT surgery connsulttion for possible
fasciotomy and make patient NPO. Consider transfer to ICU.
Review of Systems: No Fever, No Chills, No Swollen Lymph Nodes, No Cough, No Sputum Production, No Chest Pain, No Palpitations, No Abdominal Pain, No Nausea, No Vomiting, No Diarrhea, No Dysuria, No Joint Pain and Skin Rash (left leg erythema below
knee with abnormal dark/dusky skin lower leg with continued bullae with mild lateral crepitus)
Vital Signs / Physical Exam
Vital Signs
Vital Signs
Temp Pulse Resp BP Pulse Ox
101.0 F H 103 14 144/99 94
10/07/24 16:36 10/07/24 17:15 10/07/24 17:15 10/07/24 17:15 10/07/24 17:15
Physical Exam
Constitutional: Well Developed, Acutely Ill and Obese
Head: Normocephalic
Eyes: Pupils Equal, No Conjunctival Hemorrhage and Sclera Anicteric
Oropharyngeal: Benign
Cardiovascular: Regular Rate and Peripheral Edema
Pulmonary: Clear and Non Labored
Gastrointestinal: Soft, Non Tender and Normal Bowel Sounds
Extremities: Edema, Erythema and Calf Swelling
Skin: Warm and Dry (exceot lower left leg)
Wound: Other (left lower leg)
Neurological: Awake, Alert, Oriented and AO x 3 (gait not observed)
Psychological: Other (anxious)
Objective Data
Lab Data
Lab Results
10/07/24 06:25
10/07/24 06:25
Estimated Creat Clear > 125 ml/min 10/07/24 06:25
Lactic Acid 2.0 mmol/L (0.7-2.0) 10/03/24 00:15
Total Bilirubin 1.6 mg/dl (0.2-1.3) H 10/03/24 00:11
AST 28 U/L (17-59) 10/03/24 00:11
ALT 83 U/L (0-50) H 10/03/24 00:11
Alkaline Phosphatase 116 U/L (38-126) 10/03/24 00:11
Most recent labs reviewed.
Microbiology: Report Reviewed
Micro Results:
10/07/24 16:18 Wound Culture - Pending
Leg - Left Gram Stain - Preliminary
10/07/24 16:18 Anaerobic Culture - Pending
Leg - Left
10/04/24 07:43 Blood Culture - Preliminary
Blood/Venous No Growth in 72 hours- Final report to follow
10/03/24 00:26 Blood Culture - Preliminary
Blood/Venous Streptococcus pyogenes
Gram Stain - Final
10/03/24 00:15 Blood Culture - Preliminary
Blood/Venous Streptococcus pyogenes
Gram Stain - Preliminary
10/03/24 05:04 MRSA Screen - Final
Nose No Methicillin Resistant Staphylococcus aureus isolated.
10/02/24 23:42 Influenza Types A & B ([facility]) - Final
Nasal Swab Negative for Influenza A & B, NAAT
Negative results must be combined with clinical observations
and patient history.
Nucleic Acid Amplification test (NAAT)performed on the
[employer] platform.
Care Review
Plan reviewed with: Nurse, Physician and Other Provider
Total Time Spent with Patient (in minutes): 55
[2024-10-07] MEDS: LIPITOR 10 MG PO (18:20)
[2024-10-07] MEDS: AMBIEN 10 MG PO (22:17)
--- NOTE | 2024-10-08 00:19 | PTCARENOTE ---
Pt LLE post op dressing w/ copious amounts of serous and serosanguineous drainage. No wound care orders and no orders to reinforce surgical dressing. production assembly supervisor MD Guerrero notified about drainage, instructed to change ABDs and kerlix and to place JOSE
wrap and to not change packing. Pt premedicated w/ PRN dilaudid 1mg IV (see MAR). ABD and kerlix changed and packing left, JOSE wrap applied and leg elevated on pillows. Plan of care ongoing.
[2024-10-08] MEDS: DILAUDID 0.5 MG IV ×3 (02:00→14:45)
[2024-10-08 03:09] VITALS: BP 111/60
[2024-10-08] MEDS: DILAUDID 1 MG IV ×4 (05:40→22:00)
[2024-10-08 06:10] LABS: Hematocrit 36.4 % (39.0-52.0); Hemoglobin 12.2 g/dL (13.0-18.0); Mean Corp Hgb Conc. 33.5 g/dL (33.0-37.0); Mean Corpuscular Volume 87.5 fL (80.0-94.0); Platelet Count 328 10^3/uL (130-400); Red Cell Dist. Width 13.0 % (11.5-14.5)
[2024-10-08 06:36] LABS: Blood Urea Nitrogen 11 mg/dl (9-20); Calcium 8.3 mg/dl (8.4-10.2); Carbon Dioxide 30 mmol/L (22-30); Chloride 100 mmol/L (98-107); Estimated Creatinine Clearance > 125 ml/min; Glucose 134 mg/dl (70-99); Potassium 3.6 mmol/L (3.5-5.1); Sodium 138 mmol/L (135-145); eGFR > 60.00
[2024-10-08 07:00] VITALS: BP 138/90
--- NOTE | 2024-10-08 07:09 | W.PN.GS2 ---
Today's Communication / Plan
-
WOUND DRESSING.
Assessment / Plan
-
38 yo M PMH HLD, obsesity, anxiety, DAWN not on CPAP p/w swelling and redness of LLE most concerning for sepsis due to severe cellulitis s/p Incision and drainage left lower extremity with fasciotomy
# Sepsis secondary to left leg Severe Cellulitis with s/p Incision and drainage left lower extremity with fasciotomy:
-Leukocytosis, and tachycardia with confirmed source of infection meet SIRS criteria
-Tachypnea - RR- 20
-Blood cultures grew Group A Strep.
-IV ceftriaxone (day 4 - 10/08/2024)
-Clinical impression overall points towards improvement
-WBC = 20.2 -->19.4-->18.6--> 30 (h) (possible due to General anaesthesia wound debridement procedure)
-s/p Incision and drainage left lower extremity with fasciotomy DAY 1:
-wound dressing later today with Betadine Kerlix packing with Kerlix wrap and ABDs,
-leg elevation with pillow recommended.
-temperature is within normal limits probably due to Tylenol administration.
# USG of the left lower extremity on 10/02/24 : No sonographic evidence for left lower extremity deep venous thrombosis.
DVT prophylaxis: Lovenax
Subjective Data
-
Date of Service: October 08, 2024
Overnight patient doesn't has a concern for left lower limb extremity pain, swelling, numbness, tingling, fever, chills.
Objective Data
-
Intake and Output
10/07/24 10/08/24 10/09/24
06:59 06:59 06:59
Intake Total 0 / 2160 680 / 680
Output Total 1600 / 1600 2049
Balance 560 / 560 -1370 / -1370
Intake:
Oral fluids 2160 / 2160 680 / 680
Output:
Urine, Voided 1600 / 1600 2049 / 2049
Other:
Number of approximated MODERATE 1 2
amounts of urine
Number of approximated LARGE 2
amounts of urine
Vital Signs
Temp Pulse Resp BP Pulse Ox
97.8 F 89 16 111/60 91
10/08/24 03:09 10/08/24 03:09 10/08/24 03:09 10/08/24 03:09 10/08/24 03:09
Lab Results
10/08/24 05:29
10/08/24 05:29
Calcium 8.3 mg/dl (8.4-10.2) L 10/08/24 05:29
Magnesium 2.1 mg/dl (1.6-2.3) 10/04/24 07:43
Total Bilirubin 1.6 mg/dl (0.2-1.3) H 10/03/24 00:11
AST 28 U/L (17-59) 10/03/24 00:11
ALT 83 U/L (0-50) H 10/03/24 00:11
Alkaline Phosphatase 116 U/L (38-126) 10/03/24 00:11
Total Protein 6.4 g/dl (6.3-8.2) 10/03/24 00:11
Albumin 3.9 g/dl (3.5-5.0) 10/03/24 00:11
Physical Exam
-
General: Well Developed
Respiratory: Clear
Cardiac: S1/S2 and Regular Rhythm
GI: Soft
Skin: Wound dressing present in the left side leg, palpable pulses.
Neuro: AO x 3
Psych: Calm
Patient has a jeffrey catheter: No
Patient has a central line: No
--- NOTE | 2024-10-08 07:12 | W.PN.HOSP.TC ---
Addendum entered and electronically signed by Porfirio Last MD 10/08/24 21:01:
Attending Addendum-
I saw and evaluated the patient. I reviewed the resident�s note and agree with findings and plan as documented in the resident�s note. Sub: seen with present. states pain improved but still present on ambulation. Denies abd pain NV. was febrile
in last 24 hours. Full 12 point ROS reviewed and negative except as documented Exam: Vitals reviewed in chart GEN-NAD heart RRR no Murmurs lungs clear abd obese NT ND LE wrapped pulses in LE present 2+ DP skin redness fading
Plan:
# Sepsis secondary to severe LLE cellulitis/bacteremia
- leukocytosis worsening post OP
- cont ceftriaxone- day 5 add clindamycin-day 1
- 10/07- OR emergent Incision and drainage left lower extremity with fasciotomy, decompression, compartments left open
- 2/2 blood cx pos for GAS on 10/03
- repeat blood cx 10/04 - NGTD
- repeat blood cx
- wound care
- neg LE US for DVT
- 2decho- Normal biventricular size and systolic function without regional wall motion abnormality. Estimated LVEF 55-60%.
No significant valve disease.
No vegetation visualized within limits of TTE.
-pain control
# Anxiety- cont Klonopin prn
# insomnia- cont zolpidem
# HLD - cont atorvastatin
# Morbid obesity- debt counselor, cont ozempic on DC
-DVT-p lovenox weight adjusted
-CODE-Full
Time spent coordinating care, review of plan of care with resident, personally reviewed records in EMR, med rec, consults, notes, labs, radiology, d/w nursing surgery and ID � 52 mins
Original Note:
Today's Communication/Plan
-
- s/p fasciotomy; compartments left open
- continue IV ceftriaxone
- start clindamycin
- f/u surgery recs; wound care
- repeat blood culture
- increase pain regimen
- monitor VS, physical exam, CBC, BMP
Assessment / Plan
Assessment / Plan
Assessment/plan
38 yo M PMH HLD, obsesity, anxiety, DAWN not on CPAP p/w swelling and redness of LLE with sepsis secondary to cellulitis
#Sepsis secondary to left lower extremity cellulitis
# s/p fasciotomy
- POD#1, compartments were left open
- Operative findings reassure against necrotizing fasciitis (healthy dermis, fascia, muscle)
- Leukocytosis today is likely reactive from surgical operation
- documented fever on 10/07 evening, monitor VS
- HR is < 100 (in 90s)
- Blood cultures from 10/03 grew Group A Strep. ; Cultures from 10/04 show no growth in 72hrs
- TTE on 10/04 did not show evidence of vegetation
- repeat blood culture today
- per ID, continue IV ceftriaxone 2mg q24h (today is DAY #5)
- per surgery, start IV clindamycin (today is DAY #1)
- pain control: dilaudid 1mg q4h prn & dilaudid 0.5mg q4h prn
- wound dressing per surgery; f/u surgery recs
# Tachycardia -- resolved
- has resolved s/p fasciotomy
- monitor VS
#Anxiety
-Continue home clonazepam, zolpidem.
-Reviewed PDMP. No red flags
#Hypercholesterolemia
-Continue atorvastatin
#DAWN not on CPAP
#Morbid obesity BMI 56.7
-Affects all aspects of care
-Uses Ozempic at home
CODE STATUS full code
DVT prophylaxis Lovenox
disposition: pending clinical improvement, per Dr. King, will go home on IV antibiotics
Anticipated Discharge: > 48 hours
Subjective/Interval History
-
Date of Service: October 08, 2024
fasciotomy yesterday, per Dr. Ford, findings more consistent with severe cellulitis and edema. compartments were left open
this morning,
feels better but some pain; 'pressure release'
fever at 101 around 17:00 07 evening
Objective Data
-
Labs:
Laboratory Results
10/08/24
05:29
WBC 30.0 H
Hgb 12.2 L
Hct 36.4 L
Plt Count 328 D
Sodium 138
Potassium 3.6
Chloride 100
Carbon Dioxide 30
BUN 11
Creatinine 0.6 L
Glucose 134 H
Calcium 8.3 L
surgical op note: 10/07/2024
Operative Findings: Superficial desquamation of the epithelium but viable dermis. Severe cellulitis. Decompression incisions made along the left anterior medial tibial region and left anterior lateral leg. Subcutaneous fat and fascia layers
healthy and viable, just edematous. Deep cultures obtained overlying fascia. Posterior compartment decompressed along the posterior medial tibia without purulence or sign of deep infection. Anterior lateral compartment decompressed as well with
also clean tissue planes. Given extensiveness of edema left compartments open. Left anterior incision 15 cm x 3 cm x 2 cm deep. Left posterior lateral incision site 25 cm x 3 cm x 2 cm deep. Betadine Kerlix packing with Kerlix wrap and ABDs.
TTE: 10/04
Normal biventricular size and systolic function without regional wall motion
abnormality. Estimated LVEF 55-60%.
No significant valve disease.
No vegetation visualized within limits of TTE.
Vital Signs:
Vital Signs
Temp Pulse Resp BP Pulse Ox
97.8 F 89 16 111/60 91
10/08/24 03:09 10/08/24 03:09 10/08/24 03:09 10/08/24 03:09 10/08/24 03:09
fever documented at 17:00 07, at 101 F
I&O
10/07/24 10/08/24 10/09/24
06:59 06:59 06:59
Intake Total 2160 / 2160 680 / 680
Output Total 1600 / 1600 2049
Balance 560 / 560 -1370 / -1370
Review of Systems
-
History Source: Patient
Constitutional: Reports No Symptoms
EENT: Reports No Symptoms Reported
Respiratory: Reports No Symptoms
Cardiac: Reports No Symptoms
Abdomen/GI: Reports No Symptoms
Genitourinary: Reports No Symptoms
Musculoskeletal: Reports No Symptoms
Skin: Reports Other (pain in LLE)
Neuro: Reports No Symptoms
Endocrine: Reports No Symptoms
Physical Exam
-
General: Appears in Distress
HEENT: Normocephalic and Atraumatic
Respiratory: Clear to Auscultation
Cardiac: Regular Rhythm and Other (no murmurs on my exam)
GI: Soft and Nontender
Musculoskeletal: Other (pedal pulses palpable bilaterally; full range of motion of left foot)
Skin: Warm and Other (left lower extremity is bandaged. skin pimentel are removed due to surgical sterilization prep; but less warmth; polystyrene molding machine tender to palpation )
Neuro: Awake and Alert
Psych: Calm
--- NOTE | 2024-10-08 09:02 | CM ---
Initial assessment completed on October 04; documentation mistakenly not entered.
Late note from 10/04/2024:
Pt is a 38yo male admitted with severe cellulitis. 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 No DME in the home; no Hx of SNF or VN.
Plan: CM to follow to coordinate discharge planning needs.
PCP: Pelon Morales
Pharmacy: [facility] in [place]
[2024-10-08] MEDS: CLEOCIN 50 IV ×2 (09:28→17:20)
--- NOTE | 2024-10-08 09:31 | CM ---
Pt went to OR yesterday for Incision and drainage left lower extremity with fasciotomy. He was off the floor until late last night.
Pt will go home with IV abx (ceftriaxone planned) and will need PICC closer to discharge.
Plan: CM will continue to follow to coordinate home IV abx and home care services when medically stable.
[2024-10-08] MEDS: KLONOPIN 2 MG PO ×3 (09:35→23:10)
[2024-10-08] MEDS: TYLENOL 1000 MG PO (09:35)
[2024-10-08 11:00] VITALS: BP 144/86
[2024-10-08] MEDS: STERILE WATER FOR INJECTION 20 ML IV (11:59)
[2024-10-08] MEDS: ROCEPHIN 2000 MG IV (12:00)
--- NOTE | 2024-10-08 12:38 | W.PN.ID1 ---
Date of Service
Date of Service: October 08, 2024
Today's Communication
Patient discussed with Pharm D in setting of extreme leukocytosis POD# 1 from emergency fasciotomy last PM with additon of Clindamycin for toxin mediated response this AM
Assessment / Plan
1. Bacteremia with S. pyogenes 2/2 bottles with patient currently on Ceftriaxone 2 Gm IV Q 24 H repeat blood cultures with NGTD
WBC on admission 33.o with 75% PMN and bandemia 13% recently improved with WBC today increased after extensive left leg fasciotomy
Repeat blood cultures now with NGTD
if not done yet would get TTE to rule out endocarditis in setting of recent bacteremia
2. Ceftriaxone 2 Gm Q 24h with addition of Clindamycin thia AM in setting of fasciotomy last PM and likely toxic insult with appropriate debridement of inflamed tissue
3. Local wound care to left lower leg with elevation per surgical team now POD#1
4. Leukocytosis likely due to inflammatory response with Clindamycin ordered for 3 days in addition to continued Ceftriaxone for duration to be determined
5. Patient appears comfortable and relaxed today with mother at bedside
Thank you for calling Infectious Disease Consultation
The ID team with follow with you
Please call us with any questions or concerns
Chief Complaint
-: Fever (with cultures positive for Streptococcus pyogenes), Leukocytosis, Clinical Sepsis, Cellulitis and Bacteremia
Subjective / Review of Systems
Review of Systems: No Fever, No Chills, No Headache, No Pharyngitis, No Stiff Neck, No Swollen Lymph Nodes, No Cough, No Sputum Production, No Chest Pain, No Palpitations, No Abdominal Pain, No Nausea, No Vomiting, No Diarrhea and No Dysuria
Vital Signs / Physical Exam
Vital Signs
Vital Signs
Temp Pulse Resp BP Pulse Ox
97.9 F 93 20 144/86 94
10/08/24 11:00 10/08/24 11:00 10/08/24 11:00 10/08/24 11:10/08/24 11:00
Physical Exam
Constitutional: No Acute Distress, Well Developed, Comfortable, Acutely Ill, Toxic and Obese
Head: Normocephalic
Eyes: Pupils Equal, Pupils Round, No Conjunctival Hemorrhage and Sclera Anicteric
Oropharyngeal: Benign
Cardiovascular: Regular Rate and Peripheral Edema
Pulmonary: Clear and Non Labored (few crackles at bases)
Gastrointestinal: Soft, Non Tender (central adiposity), Non Distended and Decreased Bowel Sounds (normal BM every 2 to 3 days?)
Genito-Urinary: Clear Urine
Extremities: Edema, Erythema and Calf Swelling
Musculoskeletal: Joint Swelling
Skin: Warm and Dry (left lower leg dressing intact with serous drainage soaking dressing POD#1)
Neurological: Awake, Alert, Oriented and AO x 3 (gait not observed)
Psychological: Calm
Objective Data
Lab Data
Lab Results
10/08/24 05:29
10/08/24 05:29
Estimated Creat Clear > 125 ml/min 10/08/24 05:29
Lactic Acid 2.0 mmol/L (0.7-2.0) 10/03/24 00:15
Total Bilirubin 1.6 mg/dl (0.2-1.3) H 10/03/24 00:11
AST 28 U/L (17-59) 10/03/24 00:11
ALT 83 U/L (0-50) H 10/03/24 00:11
Alkaline Phosphatase 116 U/L (38-126) 10/03/24 00:11
Most recent labs reviewed.
Microbiology: Report Reviewed
Micro Results:
10/07/24 16:18 Anaerobic Culture - Preliminary
Leg - Left Culture pending. Anaerobic cultures are examined after 3
days incubation. Additional information to follow.
10/07/24 16:18 Wound Culture - Preliminary
Leg - Left No growth
Gram Stain - Preliminary
10/04/24 07:43 Blood Culture - Preliminary
Blood/Venous No Growth in 4 days- Final report to follow
10/03/24 00:26 Blood Culture - Preliminary
Blood/Venous Streptococcus pyogenes
Gram Stain - Final
10/03/24 00:15 Blood Culture - Preliminary
Blood/Venous Streptococcus pyogenes
Gram Stain - Preliminary
10/03/24 05:04 MRSA Screen - Final
Nose No Methicillin Resistant Staphylococcus aureus isolated.
10/02/24 23:42 Influenza Types A & B ([facility]) - Final
Nasal Swab Negative for Influenza A & B, NAAT
Negative results must be combined with clinical observations
and patient history.
Nucleic Acid Amplification test (NAAT)performed on the
[employer] platform.
CT Scan: Report Reviewed
Care Review
Plan reviewed with: Physician (Pharm D with addition of Clindamycin ) and Other Provider (cvering physician for weekend)
Total Time Spent with Patient (in minutes): 45
[2024-10-08 15:00] VITALS: BP 159/90
--- NOTE | 2024-10-08 15:36 | W.PN.SURGUPD ---
Surgical Update
Surgical Update
Pt seen and examined at bedside with wound care nurse. Analgesic given IV prior to dressing change. Pain improved overall.
POD #1 Incision and drainage left lower extremity with fasciotomy. Decompression incisions made along the left anterior medial tibial region and left anterior lateral leg.
Dressing changed with assistance from wound care team. Positive pules, sensation and movement intact. Denies numbness/tingling to extremity. Last fever was around 1600 yesterday. Leukocytosis present.
Subcutaneous fat and fascia layers healthy and viable, no purulence. Overlying skin to anterior portion of left with superficial blistering/discoloration. Erythema receded from prior markings.
Pulsatile bleeder to proximal portion of medial wound noted during dressing change: controlled bleeding with light pressure and silver nitrate application. Oozing from left lateral incision along the medial aspect of the incision also controlled
with silver nitrate and light pressure. Surgicel dressing also placed in base of left lateral wound d/t oozing/friable edges with good effect. Incisions packed with saline moistened Kerlix. Placed adaptic dressing to open areas from previous
blistering. ABD pads over wound with Kerlix wrap to hold in place. JOSE compressions for edema.
Will continue daily dressing changes. Ok to get OOB as tolerated. Analgesics as needed. ABX as per ID.
--- NOTE | 2024-10-08 15:39 | WOUNDNOTE ---
[facility] RN NOTE: Patient s/p left leg Severe Cellulitis with s/p Incision and drainage left lower extremity with fasciotomy on 10/07. This continuity writer assisted PROCESS AUTOMATION ENGINEERChloe with dressing change. Patient medicated for pain prior to dressing change. Left anterior
incision 15 cm x 3 cm x 2 cm deep. Left posterior lateral incision site 25 cm x 3 cm x 2 cm deep. Silver nitrate applied to both wounds by Chloe during dressing change. Both wounds packed with saline gauze and adaptic applied to open areas.
Surgicel applied to lateral incision. Plan is for Chloe to change dressing again tomorrow. JOSE wrap applied by this RN and RN Gen. Heels are intact, patient unable to turn at time of assessment but RN Gen to assess at later time today. Instructed
patient on turning and repositioning s/p procedure to prevent PI. Patient remains on Bariatric air bed and has bariatric air cushion for chair. Will continue to follow with patient during in-patient stay.
--- NOTE | 2024-10-08 15:50 | WOUNDNOTE ---
LEFT LATERAL LEG WOUND 1983 [id number]
--- NOTE | 2024-10-08 15:51 | WOUNDNOTE ---
LEFT MEDIAL LEG INCISION
--- NOTE | 2024-10-08 15:52 | WOUNDNOTE ---
MEDIAL INCISION WITH PACKING
[2024-10-08] MEDS: LIPITOR 10 MG PO (17:20)
[2024-10-08 19:56] VITALS: BP 145/74
[2024-10-08] MEDS: LOVENOX 60 MG SC (22:00)
[2024-10-08] MEDS: AMBIEN 10 MG PO (23:10)
[2024-10-08 23:25] VITALS: BP 162/83
[2024-10-09] MEDS: CLEOCIN 50 IV ×3 (02:32→17:30)
[2024-10-09] MEDS: DILAUDID 1 MG IV ×6 (02:32→20:02)
[2024-10-09 03:00] VITALS: BP 143/76
--- NOTE | 2024-10-09 07:13 | W.PN.HOSP.TC ---
Addendum entered and electronically signed by Tani Jameson MD 10/09/24 12:51:
Attending�addendum:
I�saw�and�evaluated�the�patient.�I�reviewed�the�resident�s�note�and�agree�with�findings�and�plan�as�documented�in�the�resident�s�note.��
�patient seen and examined at bedside, denies any chest pain or shortness of breath, no abdominal pain, no nausea, no vomiting, no diarrhea or constipation.
Left leg pain more with ambulation.
Physical�exam:
GENERAL : Patient is awake, alert, oriented x3
HEENT: Nonicteric sclerae, PERRLA, EOMI. Oropharynx clear. Moist mucous membranes. Conjunctivae appear well perfused.
CHEST: Chest wall is nontender.
HEART: Regular rate and rhythm without murmurs.
LUNGS: Clear to auscultation bilaterally.
ABDOMEN: Soft, positive bowel sounds, nontender, no organomegaly.
RECTAL: Deferred.
SKIN: Left leg dressing.
NEUROLOGIC: Cranial nerves II-XII intact without motor/sensory deficit.
�
Assessment/plan:
Continue antibiotics- Follow-up infectious disease recommendations.
Out of bed to chair.
Daily dressing.
Pain control.
Monitor hemoglobin
Replace potassium.
Follow with infectious disease recommendation regarding discharge antibiotic.
�
Total�time�spent�on�today�s�encounter�was�65�minutes�which�included�time�spent�in�counseling�the�patient/family�regarding�diagnosis�and�treatment�plan�as�listed�above,�goals�of�care,�and�symptom�management.�Case�was�discussed�with�nursing�staff,�spec
ialists,�and�care�coordinators/case�management.�All�labs�and�imaging�personally�reviewed�by�me.�Remainder�the�time�spent�in�detailed�review�of�previous�records,�lab�data,�imaging,�and�other�medical�provider�documentation.
Original Note:
Today's Communication/Plan
-
- repeat CBC at 14:00
- KCl repletion
- OOB as tolerated
- daily dressing changes
Assessment / Plan
Assessment / Plan
Assessment/plan
38 yo M PMH HLD, obsesity, anxiety, DAWN not on CPAP p/w swelling and redness of LLE with sepsis secondary to cellulitis
#Sepsis secondary to left lower extremity cellulitis
# s/p fasciotomy
- POD#1, compartments were left open
- Operative findings reassure against necrotizing fasciitis (healthy dermis, fascia, muscle)
- Leukocytosis improving to 14.2
- afebrile; HR in 90-100s
- Blood cultures from 10/03 grew Group A Strep. ; Cultures from 10/04 show no growth in 72hrs; Cultures from 10/08 pending
- Wound cultures from fasciotomy 10/07preliminary no growth
- TTE on 10/04 did not show evidence of vegetation
- per ID, continue IV ceftriaxone 2mg q24h (today is DAY #6)
- per surgery, start IV clindamycin (today is DAY #2)
- pain control: dilaudid 1mg q4h prn & dilaudid 0.5mg q4h prn
- per surgery; daily dressing changes, okay to OOB
- monitor VS, CBC
# Anemia
- Hgb drop 12.2 to 10.2
- repeat CBC at 2pm
- No signs of bleeding per history/exam
# Hypokalemia
- K 3.2
- replete with 40 mEq PO KCl
- BMP in AM
#Anxiety
-Continue home clonazepam, zolpidem.
-Reviewed PDMP. No red flags
#Hypercholesterolemia
-Continue atorvastatin
#DAWN not on CPAP
#Morbid obesity BMI 56.7
-Affects all aspects of care
-Uses Ozempic at home
CODE STATUS full code
DVT prophylaxis Lovenox
disposition: pending clinical improvement, per Dr. King, will go home on IV antibiotics
Anticipated Discharge: > 48 hours
Subjective/Interval History
-
Date of Service: October 09, 2024
38 yo M PMH HLD, obsesity, anxiety, DAWN not on CPAP p/w swelling and redness of LLE with sepsis secondary to cellulitis
fasciotomy, now POD#2
feels like the pain is improving, at baseline 4/10 pain that escalates to 9/10 pain upon ambulation with walker
he is able to use walker to carry himself to the bathroom and back
Objective Data
-
Labs:
Laboratory Results
10/09/24
06:00
WBC Pending
Hgb Pending
Hct Pending
Plt Count Pending
Sodium Pending
Potassium Pending
Chloride Pending
Carbon Dioxide Pending
BUN Pending
Creatinine Pending
Glucose Pending
Calcium Pending
WBC 14.2 from 30.0 yesterday (postop)
Hgb drop 10.2 to 10.2
K+ 3.2
Cr 0.7
Blood culture pending from 10/08
Vital Signs:
Vital Signs
Temp Pulse Resp BP Pulse Ox
97.9 F 99 16 143/76 92
10/09/24 03:00 10/09/24 03:00 10/09/24 03:00 10/09/24 03:00 10/09/24 03:00
afebrile overnight
I&O
10/08/24 10/09/24 10/10/24
06:59 06:59 06:59
Intake Total 680 / 680 1919 / 1919
Output Total 2049 1325 / 1325
Balance -1370 / -1370 595 / 595
Review of Systems
-
History Source: Patient
Constitutional: Reports No Symptoms
EENT: Reports No Symptoms Reported
Respiratory: Reports No Symptoms
Cardiac: Reports No Symptoms
Abdomen/GI: Reports No Symptoms
Genitourinary: Reports No Symptoms
Musculoskeletal: Reports No Symptoms
Skin: Reports Other (pain in LLE)
Neuro: Reports No Symptoms
Endocrine: Reports No Symptoms
Physical Exam
-
General: Appears in Distress
HEENT: Normocephalic and Atraumatic
Respiratory: Clear to Auscultation
Cardiac: Regular Rhythm and Other (no murmurs on my exam)
GI: Soft and Nontender
Musculoskeletal: Other (pedal pulses palpable bilaterally; full range of motion of left foot)
Skin: Warm and Other (left lower extremity is bandaged. skin pimentel are removed due to surgical sterilization prep; but less warmth; improved pain; erythema boundary appears to be improving)
Neuro: Awake and Alert
Psych: Calm
[2024-10-09 08:04] LABS: Hematocrit 30.0 % (39.0-52.0); Hemoglobin 10.2 g/dL (13.0-18.0); Mean Corp Hgb Conc. 34.0 g/dL (33.0-37.0); Mean Corpuscular Volume 87.2 fL (80.0-94.0); Platelet Count 260 10^3/uL (130-400); Red Cell Dist. Width 13.1 % (11.5-14.5)
[2024-10-09 08:05] VITALS: BP 149/79
[2024-10-09 08:27] LABS: Blood Urea Nitrogen 14 mg/dl (9-20); Calcium 8.1 mg/dl (8.4-10.2); Carbon Dioxide 32 mmol/L (22-30); Chloride 100 mmol/L (98-107); Estimated Creatinine Clearance > 125 ml/min; Glucose 155 mg/dl (70-99); Potassium 3.2 mmol/L (3.5-5.1); Sodium 136 mmol/L (135-145); eGFR > 60.00
[2024-10-09 09:10] LABS: Glycohemoglobin (HgbA1c) 5.9 % (4.0-5.6)
[2024-10-09] MEDS: KCL 40 MEQ PO (09:32)
[2024-10-09] MEDS: LOVENOX 60 MG SC ×2 (09:33→20:01)
[2024-10-09] MEDS: KLONOPIN 2 MG PO ×2 (09:42→22:50)
[2024-10-09 11:23] VITALS: BP 138/73
[2024-10-09] MEDS: ROCEPHIN 2000 MG IV (11:55)
[2024-10-09] MEDS: STERILE WATER FOR INJECTION 20 ML IV (11:55)
--- NOTE | 2024-10-09 12:25 | W.PN.GS2 ---
Today's Communication / Plan
-
Local wound care
Assessment / Plan
-
38 yo prediabetic male with sepsis (now resolved) secondary to severe cellulitis to the LLE after sustaining a laceration while camping
POD #2 Incision and drainage left lower extremity with fasciotomy. Decompression incisions made along the left anterior medial tibial region and left anterior lateral leg.
AFebrile, VSS
Subcutaneous fat and fascia layers healthy and viable, no purulence. Overlying skin to anterior portion of left with superficial blistering/discoloration. Erythema receded from prior markings. No further bleeding. Dressing changed at bedside.
Leukocytosis trending down
A1c 5.9 (Ozempic as OP)
Bacteremia with Strep Pyogenes in original cx, follow up blood cx with NGTD. Wound cx with NGTD
Plan:
Continue local wound care daily: Incisions packed with saline moistened Kerlix. Placed adaptic dressing to open areas from previous blistering. ABD pads over wound with Kerlix wrap to hold in place. JOSE compressions for edema.
Wound care following
Ok to get OOB as tolerated. Ok for PT (reordered).
Analgesics as needed.
ABX as per ID
Subjective Data
-
Date of Service: October 09, 2024
Pt seen and examined at bedside with Dr. Draper. Pain present but not worsening. Denies numbness/paresthesias. Able to move the LLE extremity.
Objective Data
-
Intake and Output
10/08/24 10/09/24 10/10/24
06:59 06:59 06:59
Intake Total 680 / 680 1919
Output Total 2049 132 / 132
Balance -1370 / -1370 595 / 595
Intake:
Oral fluids 680 / 680 1919
Output:
Urine, Voided 2049 1325 / 1325
Other:
Number of approximated MODERATE 2 3
amounts of urine
Vital Signs
Temp Pulse Resp BP Pulse Ox
97.4 F 94 16 138/73 93
10/09/24 11:23 10/09/24 11:23 10/09/24 11:23 10/09/24 11:23 10/09/24 11:23
Lab Results
10/09/24 07:50
Calcium 8.1 mg/dl (8.4-10.2) L 10/09/24 07:50
Magnesium 2.1 mg/dl (1.6-2.3) 10/04/24 07:43
Total Bilirubin 1.6 mg/dl (0.2-1.3) H 10/03/24 00:11
AST 28 U/L (17-59) 10/03/24 00:11
ALT 83 U/L (0-50) H 10/03/24 00:11
Alkaline Phosphatase 116 U/L (38-126) 10/03/24 00:11
Total Protein 6.4 g/dl (6.3-8.2) 10/03/24 00:11
Albumin 3.9 g/dl (3.5-5.0) 10/03/24 00:11
Physical Exam
-
NAD
LLE: Subcutaneous fat and fascia layers healthy and viable, no purulence. Overlying skin to anterior portion of left with superficial blistering/discoloration, peeling. Erythema receded from prior markings. No bleeding. Dressing changed.
Positive pules, sensation and movement intact.
[2024-10-09 13:59] LABS: Hematocrit 30.4 % (39.0-52.0); Hemoglobin 10.5 g/dL (13.0-18.0); Mean Corp Hgb Conc. 34.5 g/dL (33.0-37.0); Mean Corpuscular Volume 85.6 fL (80.0-94.0); Platelet Count 284 10^3/uL (130-400); Red Cell Dist. Width 13.0 % (11.5-14.5)
--- NOTE | 2024-10-09 14:45 | W.PN.ID1 ---
Date of Service
Date of Service: October 09, 2024
Today's Communication
Continue Ceftriaxone and IV clinda
Assessment / Plan
# Severe LLE cellulitis due to Group A Strep from laceration while camping
# Group A strep bacteremia
# Leukocytosis overall improved
# Fever resolved
# Prediabetes
- 8/7 s/p OR decompression of compartment syndrome; subcutaneous fat and fascia healthy
- Continue ceftriaxone 2g IV q24 (d9)
- Continue clindamycin 900mg IV q8h (d2 of 3) as toxin inhibitor
- Continue local wound care
- Trend wbc
Chief Complaint
-: Leukocytosis, Cellulitis and Bacteremia
Subjective / Review of Systems
Has some post-surgical leg discomfort.
Vital Signs / Physical Exam
Vital Signs
Vital Signs
Temp Pulse Resp BP Pulse Ox
97.4 F 94 16 138/73 93
10/09/24 11:23 10/09/24 11:23 10/09/24 11:23 10/09/24 11:23 10/09/24 11:23
Physical Exam
Constitutional: No Acute Distress and Obese
Eyes: Sclera Anicteric
Cardiovascular: Regular Rate and S1/S2
Pulmonary: Clear
Gastrointestinal: Soft, Non Tender and Non Distended
Extremities: Edema (LLE)
Wound: Other (LLE dressing/JOSE wrap in place)
Neurological: AO x 3
Objective Data
Lab Data
Lab Results
10/09/24 13:41
10/09/24 07:50
Estimated Creat Clear > 125 ml/min 10/09/24 07:50
Lactic Acid 2.0 mmol/L (0.7-2.0) 10/03/24 00:15
Total Bilirubin 1.6 mg/dl (0.2-1.3) H 10/03/24 00:11
AST 28 U/L (17-59) 10/03/24 00:11
ALT 83 U/L (0-50) H 10/03/24 00:11
Alkaline Phosphatase 116 U/L (38-126) 10/03/24 00:11
Most recent labs reviewed.
Micro Results:
10/07/24 16:18 Wound Culture - Preliminary
Leg - Left No growth
Gram Stain - Preliminary
10/03/24 00:26 Blood Culture - Final
Blood/Venous Streptococcus pyogenes
Gram Stain - Final
10/03/24 00:15 Blood Culture - Final
Blood/Venous Streptococcus pyogenes
Gram Stain - Final
10/04/24 07:43 Blood Culture - Final
Blood/Venous No Growth - Final Report
10/08/24 16:08 Blood Culture - Pending
Blood/Venous
10/07/24 16:18 Anaerobic Culture - Preliminary
Leg - Left Culture pending. Anaerobic cultures are examined after 3
days incubation. Additional information to follow.
10/03/24 05:04 MRSA Screen - Final
Nose No Methicillin Resistant Staphylococcus aureus isolated.
10/02/24 23:42 Influenza Types A & B ([facility]) - Final
Nasal Swab Negative for Influenza A & B, NAAT
Negative results must be combined with clinical observations
and patient history.
Nucleic Acid Amplification test (NAAT)performed on the
[employer] platform.
[2024-10-09 14:57] VITALS: BP 137/65
[2024-10-09] MEDS: LIPITOR 10 MG PO (17:30)
[2024-10-09] MEDS: AMBIEN 10 MG PO (22:48)
[2024-10-09 23:00] VITALS: BP 151/87
--- NOTE | 2024-10-09 23:05 | PTCARENOTE ---
Pt does not want to wear O2 while sleeping, states 'I sleep better without it on.' Call dee within reach.
[2024-10-10] MEDS: DILAUDID 1 MG IV ×4 (00:29→10:06)
[2024-10-10] MEDS: CLEOCIN 50 IV ×3 (03:18→17:10)
[2024-10-10 05:42] LABS: Hematocrit 31.5 % (39.0-52.0); Hemoglobin 10.5 g/dL (13.0-18.0); Mean Corp Hgb Conc. 33.3 g/dL (33.0-37.0); Mean Corpuscular Volume 87.0 fL (80.0-94.0); Platelet Count 339 10^3/uL (130-400); Red Cell Dist. Width 13.0 % (11.5-14.5)
[2024-10-10 06:02] LABS: Blood Urea Nitrogen 9 mg/dl (9-20); Calcium 8.2 mg/dl (8.4-10.2); Carbon Dioxide 30 mmol/L (22-30); Chloride 100 mmol/L (98-107); Estimated Creatinine Clearance > 125 ml/min; Glucose 143 mg/dl (70-99); Potassium 3.5 mmol/L (3.5-5.1); Sodium 136 mmol/L (135-145); eGFR > 60.00
[2024-10-10 07:00] VITALS: BP 168/97
--- NOTE | 2024-10-10 07:09 | W.PN.HOSP.TC ---
Addendum entered and electronically signed by Tani Jameson MD 10/10/24 11:41:
Attending�addendum:
I�saw�and�evaluated�the�patient.�I�reviewed�the�resident�s�note�and�agree�with�findings�and�plan�as�documented�in�the�resident�s�note.��
�patient seen and examined at bedside, denies any chest pain or shortness of breath, no abdominal pain, no nausea, no vomiting, no diarrhea or constipation.
Discussed with at bedside.
Left leg pain, sutured pain medications to oral.
Physical�exam:
GENERAL : Patient is awake, alert, oriented x3
HEENT: Nonicteric sclerae, PERRLA, EOMI. Oropharynx clear. Moist mucous membranes. Conjunctivae appear well perfused.
CHEST: Chest wall is nontender.
HEART: Regular rate and rhythm without murmurs.
LUNGS: Clear to auscultation bilaterally.
ABDOMEN: Soft, positive bowel sounds, nontender, no organomegaly.
RECTAL: Deferred.
SKIN: Left leg dressing.
NEUROLOGIC: Cranial nerves II-XII intact without motor/sensory deficit.
�
Assessment/plan:
Sepsis secondary to left lower extremity cellulitis
s/p fasciotomy
Continue antibiotics- as per ID.
Out of bed to chair.
Daily dressing.
Pain control.
Monitor hemoglobin
Follow with infectious disease recommendations regarding discharge antibiotic : as per ID note from 10/07, plan for home on IV Ceftriaxone (will need to determine duration of IV antibiotics and arrangement for home infusion)
10/10 improved leukocytosis, switched pain medications to oral, no further intervention from surgery, Daily dressing.
�
Total�time�spent�on�today�s�encounter�was�65�minutes�which�included�time�spent�in�counseling�the�patient/family�regarding�diagnosis�and�treatment�plan�as�listed�above,�goals�of�care,�and�symptom�management.�Case�was�discussed�with�nursing�staff,�spec
ialists,�and�care�coordinators/case�management.�All�labs�and�imaging�personally�reviewed�by�me.�Remainder�the�time�spent�in�detailed�review�of�previous�records,�lab�data,�imaging,�and�other�medical�provider�documentation.
Original Note:
Today's Communication/Plan
-
- dressing changes
- IV ceftriaxone and IV clindamycin
- transition to PO pain control
Assessment / Plan
Assessment / Plan
Assessment/plan
38 yo M PMH HLD, obsesity, anxiety, DAWN not on CPAP p/w swelling and redness of LLE with sepsis secondary to cellulitis
#Sepsis secondary to left lower extremity cellulitis
# s/p fasciotomy
- POD#3, compartments were left open
- Operative findings reassure against necrotizing fasciitis (healthy dermis, fascia, muscle)
- Leukocytosis improving to 13.9
- afebrile; hypertensive in 150s-160s; HR in 90-100s; likely attributed to pain
- Cultures
- Blood culture from 10/08 no growth over 24 hours
- wound cultures from fasciotomy no growth
- TTE on 10/04 did not show evidence of vegetation
- per ID, IV ceftriaxone 2mg q24h (today is DAY #7)
- per surgery/ID, IV clindamycin (today is DAY #3)
- pain control: transition to oxycodone 5mg q4hprn
- per surgery; daily dressing changes, okay to OOB
- monitor VS, CBC
# Anemia
- Hgb stable at 10.5
# Hypokalemia -- resolved
- K 3.5
#Anxiety
-Continue home clonazepam, zolpidem.
-Reviewed PDMP. No red flags
#Hypercholesterolemia
-Continue atorvastatin
#DAWN not on CPAP
#Morbid obesity BMI 56.7
-Affects all aspects of care
-Uses Ozempic at home
CODE STATUS full code
DVT prophylaxis Lovenox
disposition: pending clinical improvement, per Dr. King, will need to go home on IV antibiotics
Anticipated Discharge: > 48 hours
Subjective/Interval History
-
Date of Service: October 10, 2024
feels pain is similar, but is particularly worse when dressing changes
BP systolic in 160s, and HR 90-100s
Objective Data
-
Labs:
Laboratory Results
10/10/24
04:36
WBC 13.9 H
Hgb 10.5 L
Hct 31.5 L
Plt Count 339
Sodium 136
Potassium 3.5
Chloride 100
Carbon Dioxide 30
BUN 9
Creatinine 0.6 L
Glucose 143 H
Calcium 8.2 L
Vital Signs:
Vital Signs
Temp Pulse Resp BP Pulse Ox
98.1 F 109 18 151/87 98
10/09/24 23:00 10/09/24 23:00 10/09/24 23:00 10/09/24 23:00 10/09/24 23:00
I&O
10/09/24 10/10/24 10/11/24
06:59 06:59 06:59
Intake Total 1920 / 1920 2550 / 2550
Output Total 1325 / 1325 1850 / 1850
Balance 595 / 595 700 / 700
Review of Systems
-
History Source: Patient
Constitutional: Reports No Symptoms
EENT: Reports No Symptoms Reported
Respiratory: Reports No Symptoms
Cardiac: Reports No Symptoms
Abdomen/GI: Reports No Symptoms
Genitourinary: Reports No Symptoms
Musculoskeletal: Reports No Symptoms
Skin: Reports Other (pain in LLE)
Neuro: Reports No Symptoms
Endocrine: Reports No Symptoms
Physical Exam
-
General: Appears in Distress
HEENT: Normocephalic and Atraumatic
Respiratory: Clear to Auscultation
Cardiac: Regular Rhythm and Other (no murmurs on my exam)
GI: Soft and Nontender
Musculoskeletal: Other (pedal pulses palpable bilaterally; full range of motion of left foot)
Skin: Warm and Other (left lower extremity is bandaged. erythema appears to be improving)
Neuro: Awake and Alert
Psych: Calm
[2024-10-10] MEDS: LOVENOX 60 MG SC ×2 (08:59→20:36)
--- NOTE | 2024-10-10 10:54 | W.PN.GS2 ---
Today's Communication / Plan
-
dressing changes
pain management
Assessment / Plan
-
38 yo prediabetic male with sepsis (now resolved) secondary to severe cellulitis to the LLE after sustaining a laceration while camping
POD #3 Incision and drainage left lower extremity with fasciotomy. Decompression incisions made along the left anterior medial tibial region and left anterior lateral leg.
AFebrile, VSS
Subcutaneous fat and fascia layers healthy and viable, no purulence. Overlying skin to anterior portion of left lateral medial and anterior calf with superficial blistering/discoloration and pealing of superficial layers of skin with open
ulcerations. Erythema receded from prior markings. No further bleeding. Dressing changed at bedside.
Leukocytosis trending down
A1c 5.9 (Ozempic as OP)
Bacteremia with Strep Pyogenes in original cx, follow up blood cx with NGTD. Wound cx with NGTD
Plan:
Continue local wound care daily: Incisions packed with saline moistened Kerlix. Placed adaptic dressing to open areas from previous blistering. ABD pads over wound with Kerlix wrap to hold in place. JOSE compressions for edema.
Wound care following, dressing changes by nursing/wound care team
Ok to get OOB as tolerated/PT following
Analgesics as needed. Added scheduled gabapentin 100mg TID
ABX as per ID
Wound progressing well from surgical standpoint.
Subjective Data
-
Date of Service: October 10, 2024
Pt seen and examined at bedside. Spouse present and updated. Denies n/v. Pain 04/12 currently after analgesics. Notes itching and occasional sharp pains.
Objective Data
-
Intake and Output
10/09/24 10/10/24 10/11/24
06:59 06:59 06:59
Intake Total 1920 / 1920 2550 / 2550
Output Total 1325 / 1325 1850 / 1850
Balance 595 / 595 700 / 700
Intake:
Oral fluids 1920 / 1920 2400 / 2400
IV piggybacks 150 / 150
Output:
Urine, Voided 1325 / 1325 1850 / 1850
Other:
Number of approximated MODERATE 3
amounts of urine
Vital Signs
Temp Pulse Resp BP Pulse Ox
98.2 F 102 20 168/97 97
10/10/24 07:00 10/10/24 07:00 10/10/24 07:00 10/10/24 07:00 10/10/24 07:00
Lab Results
10/10/24 04:36
10/10/24 04:36
Calcium 8.2 mg/dl (8.4-10.2) L 10/10/24 04:36
Magnesium 2.1 mg/dl (1.6-2.3) 10/04/24 07:43
Total Bilirubin 1.6 mg/dl (0.2-1.3) H 10/03/24 00:11
AST 28 U/L (17-59) 10/03/24 00:11
ALT 83 U/L (0-50) H 10/03/24 00:11
Alkaline Phosphatase 116 U/L (38-126) 10/03/24 00:11
Total Protein 6.4 g/dl (6.3-8.2) 10/03/24 00:11
Albumin 3.9 g/dl (3.5-5.0) 10/03/24 00:11
Physical Exam
-
NAD
LLE: Subcutaneous fat and fascia layers healthy and viable, no purulence. Overlying skin to anterior portion of left parson to lateral/medial calf with superficial blistering/discoloration, peeling. Erythema receded from prior markings. No bleeding.
Dressing changed.
Positive pules, sensation and movement intact.
[2024-10-10] MEDS: NEURONTIN 100 MG PO ×3 (11:44→21:50)
[2024-10-10] MEDS: STERILE WATER FOR INJECTION 20 ML IV (11:44)
[2024-10-10] MEDS: ROCEPHIN 2000 MG IV (11:45)
--- NOTE | 2024-10-10 12:42 | W.PN.ID1 ---
Date of Service
Date of Service: October 10, 2024
Today's Communication
Continue antibiotics.
Assessment / Plan
# Severe LLE cellulitis due to Group A Strep from laceration while camping
# Group A strep bacteremia
# Leukocytosis overall improved
# Fever resolved
# Prediabetes
- 8/7 s/p OR decompression of compartment syndrome; subcutaneous fat and fascia healthy
- Continue ceftriaxone 2g IV q24 (d#10)
- Continue clindamycin 900mg IV q8h (d#3 of 3) as toxin inhibitor
- Continue local wound care
- Trend wbc; overall improvement noted.
Chief Complaint
-: Leukocytosis, Cellulitis and Bacteremia
Subjective / Review of Systems
Review of Systems: No Fever and No Chills
Vital Signs / Physical Exam
Vital Signs
Vital Signs
Temp Pulse Resp BP Pulse Ox
98.2 F 102 20 168/97 97
10/10/24 07:00 10/10/24 07:00 10/10/24 07:00 10/10/24 07:00 10/10/24 07:00
Physical Exam
Constitutional: No Acute Distress and Obese
Eyes: Sclera Anicteric
Cardiovascular: Regular Rate and S1/S2
Pulmonary: Clear
Gastrointestinal: Soft, Non Tender and Non Distended
Extremities: Edema (LLE)
Wound: Other (LLE dressing/JOSE wrap in place)
Neurological: AO x 3
Objective Data
Lab Data
Lab Results
10/10/24 04:36
10/10/24 04:36
Estimated Creat Clear > 125 ml/min 10/10/24 04:36
Lactic Acid 2.0 mmol/L (0.7-2.0) 10/03/24 00:15
Total Bilirubin 1.6 mg/dl (0.2-1.3) H 10/03/24 00:11
AST 28 U/L (17-59) 10/03/24 00:11
ALT 83 U/L (0-50) H 10/03/24 00:11
Alkaline Phosphatase 116 U/L (38-126) 10/03/24 00:11
Most recent labs reviewed.
Micro Results:
10/07/24 16:18 Anaerobic Culture - Preliminary
Leg - Left Culture pending. Anaerobic cultures are examined after 3
days incubation. Additional information to follow.
10/07/24 16:18 Wound Culture - Preliminary
Leg - Left No growth
Gram Stain - Preliminary
10/08/24 16:08 Blood Culture - Preliminary
Blood/Venous No Growth in 24 hours- Final report to follow
10/03/24 00:26 Blood Culture - Final
Blood/Venous Streptococcus pyogenes
Gram Stain - Final
10/03/24 00:15 Blood Culture - Final
Blood/Venous Streptococcus pyogenes
Gram Stain - Final
10/04/24 07:43 Blood Culture - Final
Blood/Venous No Growth - Final Report
10/03/24 05:04 MRSA Screen - Final
Nose No Methicillin Resistant Staphylococcus aureus isolated.
10/02/24 23:42 Influenza Types A & B ([facility]) - Final
Nasal Swab Negative for Influenza A & B, NAAT
Negative results must be combined with clinical observations
and patient history.
Nucleic Acid Amplification test (NAAT)performed on the
[employer] platform.
[2024-10-10] MEDS: ROXICODONE 5 MG PO (12:45)
[2024-10-10] MEDS: ROXICODONE 10 MG PO ×3 (14:14→22:24)
[2024-10-10 15:00] VITALS: BP 162/95
[2024-10-10] MEDS: KLONOPIN 2 MG PO ×2 (15:26→21:50)
[2024-10-10] MEDS: LIPITOR 10 MG PO (17:10)
[2024-10-10] MEDS: AMBIEN 10 MG PO (21:50)
[2024-10-10 23:00] VITALS: BP 166/103
[2024-10-11] MEDS: CLEOCIN 50 IV (01:32)
[2024-10-11] MEDS: ROXICODONE 10 MG PO ×5 (02:26→20:38)
--- NOTE | 2024-10-11 07:11 | W.PN.HOSP.TC ---
Addendum entered and electronically signed by Porfirio Last MD 10/11/24 22:57:
Attending Addendum-
I saw and evaluated the patient. I reviewed the resident�s note and agree with findings and plan as documented in the resident�s note. Sub: seen with present. feels greatly improved. Pain better controlled on PO. Denies abd pain NV fevers
chills. Full 12 point ROS reviewed and negative except as documented Exam: Vitals reviewed in chart GEN-NAD heart RRR no Murmurs lungs clear abd obese NT ND LE wrapped pulses in LE present 2+ DP
Plan:
# Sepsis secondary to severe LLE cellulitis/bacteremia
- leukocytosis improved
- cont ceftriaxone, last dose clindamycin 10/11
- 10/07- OR emergent Incision and drainage left lower extremity with fasciotomy, decompression, compartments left open- POD#4
- 2/2 blood cx pos for GAS on 10/03
- repeat blood cx- NGTD
- wound care
- neg LE US for DVT
- 2decho- Normal biventricular size and systolic function without regional wall motion abnormality. Estimated LVEF 55-60%.
No significant valve disease.
No vegetation visualized within limits of TTE.
-pain control
# Anxiety- cont Klonopin prn
# insomnia- cont zolpidem
# HLD - cont atorvastatin
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
-DVT-p lovenox weight adjusted
-CODE-Full
Dispo DC planning
Time spent coordinating care, review of plan of care with resident, personally reviewed records in EMR, med rec, consults, notes, labs, radiology, d/w nursing surgery and ID and POA � 51 mins
Original Note:
Today's Communication/Plan
-
- f/u ID recommendations regarding antibiotics
- pain control
- miralax po daily
- monitor VS, CBC
Assessment / Plan
Assessment / Plan
Assessment/plan
38 yo M PMH HLD, obsesity, anxiety, DAWN not on CPAP p/w swelling and redness of LLE with sepsis secondary to cellulitis
#Sepsis secondary to left lower extremity cellulitis
# s/p fasciotomy
- POD#4, compartments were left open
- Operative findings reassure against necrotizing fasciitis (healthy dermis, fascia, muscle)
- Leukocytosis improving to 12.7
- afebrile; hypertensive in 150s-160s; HR in 90-100s; likely attributed to pain
- Cultures
- Blood culture from 10/08 no growth over 24 hours
- wound cultures from fasciotomy no growth
- TTE on 10/04 did not show evidence of vegetation
- per ID, IV ceftriaxone 2mg q24h (today is DAY #8)
- per surgery/ID, completed IV clindamycin yesterday
- per ID, will require home antibiotics, CM given abx prescription, per ID note.
- pain control: oxycodone 10mg and 5mg q4h PRN. only taking oxycodone 10mg.
- for 10/12, follow-up ID on reccs of abx, and PICC vs. midline
- per surgery; daily dressing changes with wound care, okay to OOB, teaching was done at bedside
- monitor VS, CBC
# Constipation
- miralax PO daily
# Anemia
- Hgb stable at 10.5
# Hypokalemia -- resolved
- K 3.8
# Prediabetes
- HbA1c 5.9%; was 5.6% 1 week ago
#Anxiety
-Continue home clonazepam, zolpidem.
-Reviewed PDMP. No red flags
#Hypercholesterolemia
-Continue atorvastatin
#DAWN not on CPAP
#Morbid obesity BMI 56.7
-Affects all aspects of care
-Uses Ozempic at home
CODE STATUS full code
DVT prophylaxis Lovenox
disposition: teaching by wound care on dressing changes, will need to follow-up wound center outpatient, will need IV abx.
Anticipated Discharge: 24 - 48 hours
Subjective/Interval History
-
Date of Service: October 11, 2024
Weekend updates:
transition to PO pain regimen yesterday
BP has been intermittently high 150s-160s systolic
This morning, he reports PO pain is working except when he gets up to ambulate that escalates and doesn't fully resolve
per wound care team: 'Discussed plan with Chloe, surgical CASTING ROOM OPERATOR, no change in wound care, to follow up at wound care center with Dr. Lopez and she will contact to make sure patient will have VN at home. Extensive teaching done with and
mother at bedside regarding wound care, compression and importance of leg elevation when sitting.'
Objective Data
-
Labs:
Laboratory Results
10/11/24
06:54
WBC Pending
Hgb Pending
Hct Pending
Plt Count Pending
Sodium Pending
Potassium Pending
Chloride Pending
Carbon Dioxide Pending
BUN Pending
Creatinine Pending
Glucose Pending
Calcium Pending
WBC 12.7
electrolyets within normal limits
HbA1c 5.9
Vital Signs:
Vital Signs
Temp Pulse Resp BP Pulse Ox
99.0 F 116 18 166/103 98
10/10/24 23:00 10/10/24 23:00 10/10/24 23:00 10/10/24 23:00 10/10/24 23:00
afebrile
I&O
10/10/24 10/11/24 10/12/24
06:59 06:59 06:59
Intake Total 2550 / 2550 1440 / 1440
Output Total 1850 / 1850 700 / 700
Balance 700 / 700 740 / 740
Review of Systems
-
History Source: Patient
Constitutional: Reports No Symptoms
EENT: Reports No Symptoms Reported
Respiratory: Reports No Symptoms
Cardiac: Reports No Symptoms
Abdomen/GI: Reports No Symptoms
Genitourinary: Reports No Symptoms
Musculoskeletal: Reports No Symptoms
Skin: Reports Other (pain in LLE)
Neuro: Reports No Symptoms
Endocrine: Reports No Symptoms
Physical Exam
-
General: Appears in Distress
HEENT: Normocephalic and Atraumatic
Respiratory: Clear to Auscultation
Cardiac: Regular Rhythm and Other (no murmurs on my exam)
GI: Soft and Nontender
Musculoskeletal: Other (pedal pulses palpable bilaterally; full range of motion of left foot)
Skin: Warm and Other (left lower extremity is bandaged. erythema appears to be improving; some itchiness bandage edge)
Neuro: Awake and Alert
Psych: Calm
[2024-10-11 07:30] VITALS: BP 135/73
[2024-10-11 07:31] LABS: Hematocrit 31.3 % (39.0-52.0); Hemoglobin 10.5 g/dL (13.0-18.0); Mean Corp Hgb Conc. 33.5 g/dL (33.0-37.0); Mean Corpuscular Volume 86.9 fL (80.0-94.0); Platelet Count 320 10^3/uL (130-400); Red Cell Dist. Width 12.8 % (11.5-14.5)
[2024-10-11 07:57] LABS: Blood Urea Nitrogen 8 mg/dl (9-20); Calcium 8.1 mg/dl (8.4-10.2); Carbon Dioxide 30 mmol/L (22-30); Chloride 102 mmol/L (98-107); Estimated Creatinine Clearance > 125 ml/min; Glucose 125 mg/dl (70-99); Potassium 3.8 mmol/L (3.5-5.1); Sodium 136 mmol/L (135-145); eGFR > 60.00
[2024-10-11] MEDS: LOVENOX 60 MG SC ×2 (08:41→20:41)
[2024-10-11] MEDS: NEURONTIN 100 MG PO ×3 (08:42→23:00)
--- NOTE | 2024-10-11 11:25 | PTCARENOTE ---
pt aaox3. states 7/10 pain in left leg. pain med administered as ordered. left leg dressing intact. pulses weak. pt worried that change of pain medication dressing changes will hurt more. reviewed ordered pain med and times.
[2024-10-11] MEDS: SENOKOT-S 1 TABLET PO (11:36)
[2024-10-11] MEDS: KLONOPIN 2 MG PO ×2 (11:36→23:00)
[2024-10-11] MEDS: MIRALAX 17 GRAMS PO (12:03)
[2024-10-11] MEDS: ROCEPHIN 2000 MG IV (12:15)
[2024-10-11] MEDS: STERILE WATER FOR INJECTION 20 ML IV (12:15)
--- NOTE | 2024-10-11 12:31 | WOUNDNOTE ---
L MEDIAL LOWER LEG
--- NOTE | 2024-10-11 12:32 | WOUNDNOTE ---
L LATERAL LOWER LEG
--- NOTE | 2024-10-11 12:32 | WOUNDNOTE ---
L MEDIAL LOWER LEG
--- NOTE | 2024-10-11 12:33 | WOUNDNOTE ---
L MEDIAL POSTERIOR LOWER LEG
--- NOTE | 2024-10-11 12:33 | WOUNDNOTE ---
L LATERAL LOWER LEG
--- NOTE | 2024-10-11 12:34 | WOUNDNOTE ---
RICARDO RN NOTE: Followed up with L leg wound as requested by family, nurse Eddie assisted with wound care. TT pictures to surgical PRESCRIPTION CLERK Chloe Low to update on today's wound. Family concerned about progress of leg wound and plan of care. Discussed plan
with Chloe, no change in wound care, to follow up at wound care center with Dr. Lopez and she will contact to make sure patient will have VN at home. Extensive teaching done with and mother at bedside regarding wound care, compression
and importance of leg elevation when sitting. Support and encouragement given, answered all questions from family and patient. Will follow as needed.
--- NOTE | 2024-10-11 12:49 | PTCARENOTE ---
pt dressing changed as ordered with wound care nurse. pt questions answered about home care. look of wound and signs of infection
--- NOTE | 2024-10-11 13:44 | W.PN.ID1 ---
Date of Service
Date of Service: October 11, 2024
Today's Communication
Continue antibiotics. Continue with local care.
Assessment / Plan
# Severe LLE cellulitis due to Group A Strep following leg laceration while camping
# Group A strep bacteremia
# Leukocytosis overall improved
# Fever resolved
# Prediabetes
- 8/7 s/p OR decompression of compartment syndrome; subcutaneous fat and fascia healthy
- Continue ceftriaxone 2g IV q24 (d#11)
- S/p 3 day course aurea clinda as toxin inhibitor
- Continue local wound care
- Trend wbc; overall improvement noted.
Patient will likely require course of home IV antibiotics. refrigeration manager given antibiotic prescription.
Chief Complaint
-: Leukocytosis, Cellulitis and Bacteremia
Subjective / Review of Systems
Review of Systems: No Fever and No Chills
Vital Signs / Physical Exam
Vital Signs
Vital Signs
Temp Pulse Resp BP Pulse Ox
98.4 F 100 16 135/73 93
10/11/24 07:30 10/11/24 07:30 10/11/24 07:30 10/11/24 07:30 10/11/24 07:30
Physical Exam
Constitutional: No Acute Distress, Comfortable and Non-toxic
Eyes: Sclera Anicteric
Cardiovascular: S1/S2; Negative S3/S4
Pulmonary: Non Labored
Gastrointestinal: Soft, Non Tender and Non Distended
Extremities: Edema (LLE)
Wound: Other (LLE dressing/JOSE wrap in place. Photos reviewed. Medial fasciotomy. Dermal necrosis noted in areas.)
Neurological: AO x 3
Objective Data
Lab Data
Lab Results
10/11/24 06:54
10/11/24 06:54
Estimated Creat Clear > 125 ml/min 10/11/24 06:54
Lactic Acid 2.0 mmol/L (0.7-2.0) 10/03/24 00:15
Total Bilirubin 1.6 mg/dl (0.2-1.3) H 10/03/24 00:11
AST 28 U/L (17-59) 10/03/24 00:11
ALT 83 U/L (0-50) H 10/03/24 00:11
Alkaline Phosphatase 116 U/L (38-126) 10/03/24 00:11
Most recent labs reviewed.
Micro Results:
10/07/24 16:18 Wound Culture - Preliminary
Leg - Left Gram Stain - Preliminary
10/07/24 16:18 Anaerobic Culture - Preliminary
Leg - Left Culture pending. Anaerobic cultures are examined after 3
days incubation. Additional information to follow.
10/08/24 16:08 Blood Culture - Preliminary
Blood/Venous No Growth in 48 hours- Final report to follow
10/03/24 00:26 Blood Culture - Final
Blood/Venous Streptococcus pyogenes
Gram Stain - Final
10/03/24 00:15 Blood Culture - Final
Blood/Venous Streptococcus pyogenes
Gram Stain - Final
10/04/24 07:43 Blood Culture - Final
Blood/Venous No Growth - Final Report
10/03/24 05:04 MRSA Screen - Final
Nose No Methicillin Resistant Staphylococcus aureus isolated.
10/02/24 23:42 Influenza Types A & B ([facility]) - Final
Nasal Swab Negative for Influenza A & B, NAAT
Negative results must be combined with clinical observations
and patient history.
Nucleic Acid Amplification test (NAAT)performed on the
[employer] platform.
Care Review
Plan reviewed with: Nurse and Other Provider ([facility])
[2024-10-11 15:00] VITALS: BP 160/97
--- NOTE | 2024-10-11 15:20 | CM ---
Obtained IV antibiotics script from ID.
Spoke with pt and about IV home infusion .
They agree with home infusion with [facility] and Wound care /PT with [facility] .
Charmaine liaison [facility] notified of referral .
Spoke with [facility] and faxed clinical to [facility] .
Will need PICC line and CXR information faxed to [facility] fax [phone] after placed.
Requested paper script for walker for pt at [place].
TT PT for 3 W request for walker.
PLAN Home with [facility] for wd care and PT .
[facility] for IV infusion
[2024-10-11 16:27] VITALS: BP 152/82; BP 192/95; PULSE 109
[2024-10-11] MEDS: LIPITOR 10 MG PO (16:43)
[2024-10-11] MEDS: AMBIEN 10 MG PO (23:00)
[2024-10-11] MEDS: BENADRYL 25 MG PO (23:01)
[2024-10-11 23:33] VITALS: BP 140/79
[2024-10-12] MEDS: ROXICODONE 10 MG PO ×4 (00:41→14:38)
--- NOTE | 2024-10-12 07:04 | W.PN.HOSP.TC ---
Addendum entered and electronically signed by Porfirio Last MD 10/12/24 23:33:
Attending Addendum-
I saw and evaluated the patient. I reviewed the resident�s note and agree with findings and plan as documented in the resident�s note. Sub: seen with present. wants to go home. feels improved. Denies abd pain NV fevers chills. Full 12 point ROS
reviewed and negative except as documented Exam: Vitals reviewed in chart GEN-NAD heart RRR no Murmurs lungs clear abd obese NT ND LE wrapped, pulses in LE present 2+ DP
Plan:
# Sepsis secondary to severe LLE cellulitis/bacteremia
- leukocytosis improved
- cont ceftriaxone 2 weeks pos DC, last dose clindamycin 10/11
- 10/07- OR emergent Incision and drainage left lower extremity with fasciotomy, decompression, compartments left open- POD#5
- heal by secondary intention f/u as OP per surg
- 2/2 blood cx pos for GAS on 10/03
- repeat blood cx- NGTD
- wound care
- neg LE US for DVT
- 2decho- Normal biventricular size and systolic function without regional wall motion abnormality. Estimated LVEF 55-60%.
No significant valve disease.
No vegetation visualized within limits of TTE.
-pain control oxy and increase gabapentin
-place midline cont abx x 2 weeks
# Anxiety- cont Klonopin prn
# insomnia- cont zolpidem
# HLD - cont atorvastatin
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
-DVT-p lovenox weight adjusted
-CODE-Full
Dispo DC home with
Time spent coordinating care, DC planning, review of DC plan of care with resident, transition of care, review of records, med rec/scripts sent electronically, consults, notes, d/w consultants, nursing, family, ID POA and CM� 33 mins >50% of this
time was devoted to counseling and coordination of care
Original Note:
Today's Communication/Plan
-
discharge today
Assessment / Plan
Assessment / Plan
Assessment/plan
38 yo M PMH HLD, obsesity, anxiety, DAWN not on CPAP p/w swelling and redness of LLE with sepsis secondary to cellulitis
#Sepsis secondary to left lower extremity cellulitis
# s/p fasciotomy
- POD#5, compartments were left open
- Operative findings reassure against necrotizing fasciitis (healthy dermis, fascia, muscle)
- Leukocytosis 12.9
- afebrile; BP 120s-130s systolic, HR 90-100s
- Cultures
- Blood culture from 10/08 no growth over 24 hours
- wound cultures from fasciotomy no growth
- TTE on 10/04 did not show evidence of vegetation
- per ID, IV ceftriaxone 2mg q24h (today is DAY #10); script is to continue IV ceftriaxone until 10/26
- midline ordered
- per surgery: heal by secondary intention
- per CM: VN, home PT, and home wound care is set up, will require outpatient follow up at wound center
- pain control: oxycodone 10mg q4h prn, will send a script
- pain control: gabapentin 300mg bid
# Anemia
- Hgb 10.1
# Hypokalemia --resolved
- K 3.7
# Constipation -- resolved
# Prediabetes
- HbA1c 5.9%; was 5.6% 1 week ago
#Anxiety
-Continue home clonazepam, zolpidem.
-Reviewed PDMP. No red flags
#Hypercholesterolemia
-Continue atorvastatin
#DAWN not on CPAP
#Morbid obesity BMI 56.7
-Affects all aspects of care
-Uses Ozempic at home
CODE STATUS full code
DVT prophylaxis Lovenox
disposition: discharge today
Anticipated Discharge: Today
Subjective/Interval History
-
Date of Service: October 12, 2024
had BM
subjectively, the pain is improving but when walking feels stabbing pain
feels well overall
Objective Data
-
Labs:
Laboratory Results
10/12/24
06:00
WBC Pending
Hgb Pending
Hct Pending
Plt Count Pending
Sodium Pending
Potassium Pending
Chloride Pending
Carbon Dioxide Pending
BUN Pending
Creatinine Pending
Glucose Pending
Calcium Pending
WBC 12.9 from 12.7
Vital Signs:
Vital Signs
Temp Pulse Resp BP Pulse Ox
98.8 F 112 18 140/79 97
10/11/24 23:33 10/11/24 23:33 10/11/24 23:33 10/11/24 23:33 10/11/24 23:33
afebrile
I&O
10/11/24 10/12/24 10/13/24
06:59 06:59 06:59
Intake Total 1440 / 1440 4200 / 4200
Output Total 700 / 700 1625 / 1625
Balance 740 / 740 2575 / 2575
Review of Systems
-
History Source: Patient
Constitutional: Reports No Symptoms
EENT: Reports No Symptoms Reported
Respiratory: Reports No Symptoms
Cardiac: Reports No Symptoms
Abdomen/GI: Reports No Symptoms
Genitourinary: Reports No Symptoms
Musculoskeletal: Reports No Symptoms
Skin: Reports Other (pain in LLE)
Neuro: Reports No Symptoms
Endocrine: Reports No Symptoms
Physical Exam
-
General: Appears in Distress
HEENT: Normocephalic and Atraumatic
Respiratory: Clear to Auscultation
Cardiac: Regular Rhythm and Other (no murmurs on my exam)
GI: Soft and Nontender
Musculoskeletal: Other (pedal pulses palpable bilaterally; full range of motion of left foot)
Skin: Warm and Other (left lower extremity is bandaged. erythema appears to be improving; some itchiness bandage edge)
Neuro: Awake and Alert
Psych: Calm
[2024-10-12 07:31] LABS: Hematocrit 30.0 % (39.0-52.0); Hemoglobin 10.1 g/dL (13.0-18.0); Mean Corp Hgb Conc. 33.7 g/dL (33.0-37.0); Mean Corpuscular Volume 86.7 fL (80.0-94.0); Platelet Count 351 10^3/uL (130-400); Red Cell Dist. Width 12.9 % (11.5-14.5)
[2024-10-12 07:45] VITALS: BP 120/70
[2024-10-12] MEDS: LOVENOX 60 MG SC (08:26)
[2024-10-12] MEDS: MIRALAX PO ×2 (08:27→08:36)
[2024-10-12] MEDS: NEURONTIN 100 MG PO (08:27)
[2024-10-12 08:52] LABS: Blood Urea Nitrogen 9 mg/dl (9-20); Calcium 7.9 mg/dl (8.4-10.2); Carbon Dioxide 27 mmol/L (22-30); Chloride 102 mmol/L (98-107); Estimated Creatinine Clearance > 125 ml/min; Glucose 120 mg/dl (70-99); Potassium 3.7 mmol/L (3.5-5.1); Sodium 135 mmol/L (135-145); eGFR > 60.00
[2024-10-12] MEDS: TYLENOL 1000 MG PO (09:59)
--- NOTE | 2024-10-12 10:11 | VNURNOTE ---
Home Health Liaison met with patient and mom at bedside to discuss [facility] nurse/therapy, visits, schedule and homebound status. Patient is agreeable and understands that visits at home will be 2-3 x per week to assess and teach medical management.
Patient is aware that [facility] will contact them for start of care in 1-2 days after discharge from . Mother Анна lives nearby and willing to learn wound care, contact info included in referral.
[facility] referral completed in [facility].
[2024-10-12] MEDS: STERILE WATER FOR INJECTION 20 ML IV (12:20)
[2024-10-12] MEDS: ROCEPHIN 2000 MG IV (12:20)
--- NOTE | 2024-10-12 12:21 | W.PN.ID1 ---
Date of Service
Date of Service: October 12, 2024
Today's Communication
Continue antibiotics.
Assessment / Plan
# Severe LLE cellulitis due to Group A Strep following leg laceration while camping
# Group A strep bacteremia / sepsis
# Leukocytosis overall improved
# Fever resolved
# Prediabetes
# Morbid obesity (BMI = 56)
Recommendations:
- S/p fasciotomy (10/07/24); subcutaneous fat and fascia healthy
- Continue ceftriaxone 2g IV q24 (d#12)
- S/p 3 day course of clinda as toxin inhibitor
- Continue local wound care
- Trend wbc; overall improvement noted.
Continue with 2 additional weeks of ceftriaxone. global implementation manager given antibiotic prescription.
PICC line to be placed.
����������������������������������������������������������
Chief Complaint
-: Leukocytosis, Cellulitis and Bacteremia
Subjective / Review of Systems
Review of Systems: No Fever and No Chills
Vital Signs / Physical Exam
Vital Signs
Vital Signs
Temp Pulse Resp BP Pulse Ox
97.9 F 100 16 120/70 93
10/12/24 07:45 10/12/24 07:45 10/12/24 07:45 10/12/24 07:45 10/12/24 07:45
Physical Exam
Constitutional: No Acute Distress, Comfortable and Non-toxic
Eyes: Sclera Anicteric
Cardiovascular: S1/S2; Negative S3/S4
Pulmonary: Non Labored
Gastrointestinal: Soft, Non Tender and Non Distended
Extremities: Edema (LLE)
Wound: Other (LLE dressing/JOSE wrap in place. Small amount of serous strikethrough.)
Neurological: AO x 3
Objective Data
Lab Data
Lab Results
10/12/24 07:04
10/12/24 07:04
Estimated Creat Clear > 125 ml/min 10/12/24 07:04
Lactic Acid 2.0 mmol/L (0.7-2.0) 10/03/24 00:15
Total Bilirubin 1.6 mg/dl (0.2-1.3) H 10/03/24 00:11
AST 28 U/L (17-59) 10/03/24 00:11
ALT 83 U/L (0-50) H 10/03/24 00:11
Alkaline Phosphatase 116 U/L (38-126) 10/03/24 00:11
Most recent labs reviewed.
Micro Results:
10/07/24 16:18 Anaerobic Culture - Final
Leg - Left NO ANAEROBES ISOLATED
10/07/24 16:18 Wound Culture - Final
Leg - Left Gram Stain - Final
10/08/24 16:08 Blood Culture - Preliminary
Blood/Venous No Growth in 72 hours- Final report to follow
10/03/24 00:26 Blood Culture - Final
Blood/Venous Streptococcus pyogenes
Gram Stain - Final
10/03/24 00:15 Blood Culture - Final
Blood/Venous Streptococcus pyogenes
Gram Stain - Final
10/04/24 07:43 Blood Culture - Final
Blood/Venous No Growth - Final Report
10/03/24 05:04 MRSA Screen - Final
Nose No Methicillin Resistant Staphylococcus aureus isolated.
10/02/24 23:42 Influenza Types A & B ([facility]) - Final
Nasal Swab Negative for Influenza A & B, NAAT
Negative results must be combined with clinical observations
and patient history.
Nucleic Acid Amplification test (NAAT)performed on the
[employer] platform.
--- NOTE | 2024-10-12 13:47 | CM ---
Addendum entered by Jeanine Rooney RN 10/12/24 15:46:
Midline placed Measurement for Midline faxed to [facility].
[facility] instructed pt and on IV infusion .
Wound care to be done by RN .
[facility] will delivery supplies and antibiotics tomorrow.
PLAN Home with [facility] and [facility] for IV antibiotics
Original Note:
MD indicated pt ready for discharge.
Spoke with Lisa home infusion with [facility] pt is covered 100%. Lisa will be in to teach patient/.
Paola set up home care for Wound care /PT with [facility] .
IV team to placed midline today.
PT dept aware of pt need for walker. to write script for walker.
Pt and in agreement with plan.
PLAN Home with [facility] for wd care and PT .
[facility] for IV infusion
[2024-10-12 14:30] VITALS: BP 153/89
[2024-10-12 15:47] VITALS: BP 136/86
[2024-10-12] MEDS: KLONOPIN 2 MG PO (17:07)
--- NOTE | 2024-10-12 18:44 | W.DCSUMMARY ---
Addendum entered and electronically signed by Porfirio Last MD 10/12/24 23:34:
Read, reviewed, and agree. See same day progress note for additional details.
Sterling Last MD
Original Note:
Documented by User: Norm Gamez MD, Resident 10/12/24 19:10
Discharge Summary
Discharge Data
Date of Admission: 10/03/24
Date of Discharge: 10/12/24
-
Pending Results: No
Hospital Course
Discharging Physician : Porfirio Last MD; Norm Gamez MD
Disposition : Home with home care
Primary care physician : Pelon Morales
Principal Discharge diagnosis : Left leg cellulitis
Chronic Discharge diagnosis : Hypercholesterolemia, Psychiatric (Anxiety) and Other (DAWN not on CPAP, morbid obesity)
Hospital Course :
38 yo M PMH HLD, obsesity, anxiety, DAWN not on CPAP p/w swelling and redness of LLE most concerning for cellulitis.
In the ED, Initial VS tachycardia, tachypnea, and n/f leukocytosis to 35 meeting criteria for sepsis on 10/03.
The following problems were addressed during this administration.
#Sepsis secondary to Group A strep cellulitis of left lower extremity
# s/p Left lower extremity fasciotomy on 10/07
- He is receiving IV ceftriaxone 2000mg q24h (today is day #10); started 10/03 at 1000mg, and he will continue to receive IV ceftriaxone at home via midline until october 26.
- midline was placed on 10/12
- He also completed a 3 day course of IV clindamycin 10/08-10/10
- On 10/02, a peripheral vascular US was negative for DVT given lower extremity swelling
- On 10/07, there were skin changes noted (darkening of skin) of LLE and general sugery took him to OR for fasciotomy, compartments left open
- surgery noted no evidence of necrosis, noted severe edema and severe cellulitis
- per surgery, these wounds will heal by secondary intention
- the wound culture from surgery did not grow any bacteria
- On day of discharge (10/12), his WBC has trended down to 12.9 and was afebrile for >24 hours prior
Upon discharge:
- He will be following up with ID and Surgery in outpatient
- Visiting nurse for home wound care has been arranged
- Wound care instructions have been conveyed
- He will also follow-up with wound center upon discharge
- discharge abx: IV ceftriaxone 2000mg q24h until 10/26/2024
- Pain control: oxycodone 5mg q4h prn for 1 week
- Pain control: gabapentin 300mg bid, advised to take 300mg bid for 2 weeks, then 300mg daily afterwards
# Group A strep bacteremia
- Blood cultures 10/03 showed bacteremia with Group A strep
- GENO on 10/04 was negative for vegetations
- repeat blood cultures from 10/08 were no growth
- IV ceftriaxone started on 10/03; and will be continued upon discharge as per above
# Anemia
- Hgb on day of discharge at 10.5
# Prediabetes
- HbA1c 5.9%; was 5.6% 1 week ago
# Chronic issues per below
#Anxiety
-Continue home clonazepam, zolpidem.
-Reviewed PDMP. No red flags
#Hypercholesterolemia
-Continue atorvastatin
#DAWN not on CPAP
#Morbid obesity BMI 56.7
-Affects all aspects of care
-Uses Ozempic at home
Important imaging findings :
10/02/2024: peripheral vascular US
IMPRESSION:
No sonographic evidence for left lower extremity deep venous thrombosis.
10/03/2024: CXR
IMPRESSION:
No acute cardiopulmonary process.
Procedure findings :
10/04/2024: Echocardiogram
CONCLUSIONS
Contrast was used.
Normal biventricular size and systolic function without regional wall motion
abnormality. Estimated LVEF 55-60%.
No significant valve disease.
No vegetation visualized within limits of TTE.
No prior study available for comparison.
10/07/2024: Incision and drainage left lower extremity with fasciotomy
Specimen / Cultures: Deep soft tissue cultures
Estimated Blood Loss: 50 mL
Complications: None immediate
Operative Findings: Superficial desquamation of the epithelium but viable dermis. Severe cellulitis. Decompression incisions made along the left anterior medial tibial region and left anterior lateral leg. Subcutaneous fat and fascia layers
healthy and viable, just edematous. Deep cultures obtained overlying fascia. Posterior compartment decompressed along the posterior medial tibia without purulence or sign of deep infection. Anterior lateral compartment decompressed as well with
also clean tissue planes. Given extensiveness of edema left compartments open. Left anterior incision 15 cm x 3 cm x 2 cm deep. Left posterior lateral incision site 25 cm x 3 cm x 2 cm deep. Betadine Kerlix packing with Kerlix wrap and ABDs.
Discharge Plan
-
Patient Disposition: Home with Home Care
Discharge Diagnosis/Procedures: Left leg cellulitis
Condition: Good
Diet: Regular and Diabetic, Carb Controlled
Additional Diets: Increase protein intake for wound healing
Activity: As tolerated
Bathing Restrictions: OK to Shower
Other Services: VN
Activity Restrictions/Additional Instructions:
Wound Care Instructions
L anterior LE-Pack bilateral incisions with saline moistened Kerlix. Place adaptic dressings to open areas from previous blistering. ABD pads over wound(CAN ADD ALGINATE OVER 1ST LAYER FOR INCREASED DRAINAGE) with Kerlix wrap to hold in place.
CHANGE DAILY AND PRN DRAINAGE JOSE with light compression.
elevate heels off bed with pillow/s
Follow up at wound care center call for an appointment.
Referrals:
Pelon Morales DO [Family Provider, Family Practice] - in one week
Mark Obregon MD [Active, Surgical] - in two weeks
Katerin Goncalves MD [Active, Infectious Diseases] - in two weeks
Additional Discharge Medication Instructions: Please take oxycodone as needed at least 4 hours apart. Please taper/space them as you can tolerate.
Please start gabapentin 300mg twice a daily for 2 weeks. After two weeks, you can decrease to gabapentin 300mg once a day. The prescription has been sent to your pharmacy.
Please continue the IV antibiotics (ceftriaxone) as directed by the infusion team through your midline.
You may continue your other home medications as you have been taking them.
Please follow-up with your PCP, infectious disease, and general surgery team.
You will also follow-up with the wound care as specified above. You will conduct wound care as you were taught.
Home Care will call you tomorrow (10/13) and [facility] will deliver the IV antibiotics tomorrow as well.
Prescriptions:
New
gabapentin 300 mg capsule
300 mg PO BID Qty: 60 0RF
Continued
atorvastatin 10 mg tablet
10 mg PO HS
diclofenac sodium 75 mg tablet,delayed release (DR/EC)
75 mg PO BIDPRN PRN (Reason: leg pain)
zolpidem 10 mg tablet
10 mg PO HSPRN PRN (Reason: sleep)
Patient Comments:
10/04/24: filled [facility]mg #30 [id number]
clonazepam 2 mg tablet
2 mg PO TIDPRN PRN (Reason: anxiety)
Patient Comments:
10/04/24: filled clonazepam 2mg tablets #90/30 day supply on 09/28/24 at [facility] #[id number] - Dr Morales
Ozempic 2 mg/dose (8 mg/3 mL) pen injector
2 mg SC WEEKLY
Discharge Orders:
Discharge Patient (As Directed); Ordered 10/12/24
Ordered By: Norm Vera
Discharge Date and Time
Discharge Date/Time: 10/12/24 18:07
Print Language: CZECH

Documented by User: Porfirio Last MD 10/12/24 23:29
Discharge Summary
Discharge Data
Date of Admission: 10/03/24
Date of Discharge: 10/12/24
Discharge Plan
-
Patient Disposition: Home with Home Care
Discharge Diagnosis/Procedures: Left leg cellulitis
Condition: Good
Diet: Regular and Diabetic, Carb Controlled
Additional Diets: Increase protein intake for wound healing
Activity: As tolerated
Bathing Restrictions: OK to Shower
Other Services: VN
Activity Restrictions/Additional Instructions:
Wound Care Instructions
L anterior LE-Pack bilateral incisions with saline moistened Kerlix. Place adaptic dressings to open areas from previous blistering. ABD pads over wound(CAN ADD ALGINATE OVER 1ST LAYER FOR INCREASED DRAINAGE) with Kerlix wrap to hold in place.
CHANGE DAILY AND PRN DRAINAGE JOSE with light compression.
elevate heels off bed with pillow/s
Follow up at wound care center call for an appointment.
Referrals:
Pelon Morales, [Family Provider, Family Practice] - in one week
Mark Obregon MD [Active, Surgical] - in two weeks
Katerin Goncalves MD [Active, Infectious Diseases] - in two weeks
Additional Discharge Medication Instructions: Please take oxycodone as needed at least 4 hours apart. Please taper/space them as you can tolerate.
Please start gabapentin 300mg twice a daily for 2 weeks. After two weeks, you can decrease to gabapentin 300mg once a day. The prescription has been sent to your pharmacy.
Please continue the IV antibiotics (ceftriaxone) as directed by the infusion team through your midline.
You may continue your other home medications as you have been taking them.
Please follow-up with your PCP, infectious disease, and general surgery team.
You will also follow-up with the wound care as specified above. You will conduct wound care as you were taught.
[facility] Care will call you tomorrow (10/13) and [facility] will deliver the IV antibiotics tomorrow as well.
Prescriptions:
New
gabapentin 300 mg capsule
300 mg PO BID Qty: 60 0RF
Continued
atorvastatin 10 mg tablet
10 mg PO HS
diclofenac sodium 75 mg tablet,delayed release (DR/EC)
75 mg PO BIDPRN PRN (Reason: leg pain)
zolpidem 10 mg tablet
10 mg PO HSPRN PRN (Reason: sleep)
Patient Comments:
10/04/24: filled ambien 10mg #30 tablets/30 day supply on 09/30/24 at [facility] #[id number]-Dr Morales
clonazepam 2 mg tablet
2 mg PO TIDPRN PRN (Reason: anxiety)
Patient Comments:
10/04/24: filled clonazepam 2mg tablets #90/30 day supply on 09/28/24 at [facility] #[id number] Charan Morales
Ozempic 2 mg/dose (8 mg/3 mL) pen injector
2 mg SC WEEKLY
Discharge Orders:
Discharge Patient (As Directed); Ordered 10/12/24
Ordered By: Norm Gamez
Discharge Date and Time
Discharge Date/Time: 10/12/24 18:07
Print Language: CZECH
== END 2024-10-12 18:07 | disposition home health service (06) | DRG 853 ==
LOC: 3 WEST ACU 02:29
PROVIDERS: Hospitalist; Student in an Organized Health Care Education/Training Program; ADMITTING PHYSICIAN Internal Medicine; ATTENDING PHYSICIAN Family Medicine; CONSULT PHYSICIAN Surgery; EMERGENCY PHYSICIAN Student in an Organized Health Care Education/Training Program; FAMILY PHYSICIAN Family Medicine; OTHER PHYSICIAN Hospitalist
PROC: 0JBP0ZZ Excision of Left Lower Leg Subcutaneous Tissue and Fascia, Open Approach (ICD-10-PCS; 2024-10-11)
DX: A41.9 Sepsis, unspecified organism (principal); M72.6 Necrotizing fasciitis; L03.116 Cellulitis of left lower limb; Z68.43 Body mass index [BMI] 50.0-59.9, adult; E78.00 Pure hypercholesterolemia, unspecified; F41.9 Anxiety disorder, unspecified; G47.33 Obstructive sleep apnea (adult) (pediatric); E66.01 Morbid (severe) obesity due to excess calories; Z11.52 Encounter for screening for COVID-19; G47.09 Other insomnia; E87.6 Hypokalemia; Z79.85 Long-term (current) use of injectable non-insulin antidiabetic drugs
CPT/HCPCS: 71046; 80048; 80053; 80202; 82550; 83036; 83605; 83735; 85025; 85027; 85379; 86618; 87040; 87070; 87075; 87147; 87154; 87205; 87502; 87811; 93306; 93971; 96361; 96374; 96375; 97116; 97162; 97166; 97530; 99285; Q9950

== ENCOUNTER → 2024-10-14 13:17 | Outpatient (REF) | payer OTHER, SELFPAY | LOC: WOUND 13:17 | PROVIDERS: ATTENDING PHYSICIAN Surgery; FAMILY PHYSICIAN Family Medicine | DX: L97.225 Non-pressure chronic ulcer of left calf with muscle involvement without evidence of necrosis (principal); M72.6 Necrotizing fasciitis; E66.01 Morbid (severe) obesity due to excess calories; R73.03 Prediabetes; F41.1 Generalized anxiety disorder | CPT/HCPCS: 99203 ==

== ENCOUNTER → 2024-10-21 12:35 | Outpatient (REF) | payer OTHER, SELFPAY | LOC: WOUND 12:35 | PROVIDERS: ATTENDING PHYSICIAN Surgery; FAMILY PHYSICIAN Family Medicine | DX: L97.225 Non-pressure chronic ulcer of left calf with muscle involvement without evidence of necrosis (principal); M72.6 Necrotizing fasciitis; E66.01 Morbid (severe) obesity due to excess calories; R73.03 Prediabetes; F41.1 Generalized anxiety disorder | CPT/HCPCS: 99213 ==

== ENCOUNTER → 2024-10-28 09:11 | Outpatient (REF) | payer OTHER, SELFPAY | LOC: WOUND 09:11 | PROVIDERS: ATTENDING PHYSICIAN Surgery; FAMILY PHYSICIAN Family Medicine | DX: L97.225 Non-pressure chronic ulcer of left calf with muscle involvement without evidence of necrosis (principal); M72.6 Necrotizing fasciitis; E66.01 Morbid (severe) obesity due to excess calories; R73.03 Prediabetes; F41.1 Generalized anxiety disorder | CPT/HCPCS: 99213 ==

== ENCOUNTER → 2024-11-12 13:02 | Outpatient (REF) | payer OTHER, SELFPAY | LOC: WOUND 13:02 | PROVIDERS: ATTENDING PHYSICIAN Surgery; FAMILY PHYSICIAN Family Medicine | DX: L97.225 Non-pressure chronic ulcer of left calf with muscle involvement without evidence of necrosis (principal); E66.01 Morbid (severe) obesity due to excess calories; M72.6 Necrotizing fasciitis; R73.03 Prediabetes; F41.1 Generalized anxiety disorder | CPT/HCPCS: 97606; 99213 ==

== ENCOUNTER → 2024-11-19 14:19 | Outpatient (REF) | payer OTHER, SELFPAY | LOC: WOUND 14:19 | PROVIDERS: ATTENDING PHYSICIAN Surgery; FAMILY PHYSICIAN Family Medicine | DX: L97.225 Non-pressure chronic ulcer of left calf with muscle involvement without evidence of necrosis (principal); M72.6 Necrotizing fasciitis; E66.01 Morbid (severe) obesity due to excess calories | CPT/HCPCS: 99213 ==

== ENCOUNTER → 2024-11-26 14:54 | Outpatient (REF) | payer OTHER, SELFPAY | LOC: WOUND 14:54 | PROVIDERS: ATTENDING PHYSICIAN Surgery; FAMILY PHYSICIAN Family Medicine | DX: L97.225 Non-pressure chronic ulcer of left calf with muscle involvement without evidence of necrosis (principal); E66.01 Morbid (severe) obesity due to excess calories; R73.03 Prediabetes; F41.1 Generalized anxiety disorder | CPT/HCPCS: 99213 ==

== ENCOUNTER → 2024-12-10 14:45 | Outpatient (REF) | payer OTHER, SELFPAY | LOC: WOUND 14:45 | PROVIDERS: ATTENDING PHYSICIAN Surgery; FAMILY PHYSICIAN Family Medicine | DX: L97.225 Non-pressure chronic ulcer of left calf with muscle involvement without evidence of necrosis (principal); M72.6 Necrotizing fasciitis; E66.01 Morbid (severe) obesity due to excess calories; R73.03 Prediabetes; F41.1 Generalized anxiety disorder | CPT/HCPCS: 17250; 99213 ==

== ENCOUNTER → 2024-12-28 14:14 | Outpatient (REF) | payer OTHER, SELFPAY | LOC: WOUND 14:14 | PROVIDERS: ATTENDING PHYSICIAN Surgery; FAMILY PHYSICIAN Family Medicine | DX: L97.522 Non-pressure chronic ulcer of other part of left foot with fat layer exposed (principal); E11.621 Type 2 diabetes mellitus with foot ulcer; E66.813 Obesity, class 3; Z68.42 Body mass index [BMI] 45.0-49.9, adult | CPT/HCPCS: 99213 ==

== ENCOUNTER 2025-01-14 14:52 | Outpatient (REF) | payer OTHER, SELFPAY | END 2025-01-14 23:59 | disposition home or self-care (01) | LOC: WOUND 14:52 | PROVIDERS: ATTENDING PHYSICIAN Surgery; FAMILY PHYSICIAN Family Medicine | DX: L97.225 Non-pressure chronic ulcer of left calf with muscle involvement without evidence of necrosis (principal); M72.6 Necrotizing fasciitis; E66.01 Morbid (severe) obesity due to excess calories; R73.03 Prediabetes; F41.1 Generalized anxiety disorder | CPT/HCPCS: 99213 ==

== ENCOUNTER 2025-02-03 14:34 | Outpatient (REF) | payer OTHER, SELFPAY | END 2025-02-03 23:59 | disposition home or self-care (01) | LOC: WOUND 14:34 | PROVIDERS: ATTENDING PHYSICIAN Registered Nurse; FAMILY PHYSICIAN Family Medicine | DX: L97.225 Non-pressure chronic ulcer of left calf with muscle involvement without evidence of necrosis (principal); E66.01 Morbid (severe) obesity due to excess calories; R73.03 Prediabetes; F41.1 Generalized anxiety disorder | CPT/HCPCS: 99213 ==